=== PATIENT | female | born 1950 | race Caucasian/White ===

== ENCOUNTER → 2017-09-03 13:50 | Outpatient (CLI) | payer OTHER, SELFPAY ==
[2017-09-03 17:42] LABS: AST(SGOT) 26 U/L (15-37); Alanine Aminotransfer ALT/SGPT 38 U/L (13-56); Alkaline Phosphatase 77 U/L (45-117); Bilirubin, Direct 0.08 mg/dL (0.00-0.30); Cholesterol 169 mg/dL (200); Globulin 3.4 g/dL (2.2-4.2); High Density Lipoprotein 81 mg/dL; Protein, Total 7.4 g/dL (6.4-8.2); Triglycerides 51 mg/dL; Very Low Density Lipoprotein 10 mg/dL (5-40)
== END ==
PROVIDERS: Family Provider Family Medicine; PCP Family Medicine; Visit Provider Internal Medicine Cardiovascular Disease
DX: E78.5 Hyperlipidemia, unspecified (principal)
CPT/HCPCS: 36415; 80061; 80076

== ENCOUNTER → 2018-04-16 13:44 | Outpatient (CLI) | payer OTHER, SELFPAY ==
--- NOTE | 2018-04-16 13:47 | BI_ITS ---
MAMMOGRAPHY - BILATERAL SCREENING REASON FOR EXAM: Female, 68 years old. Routine annual screening examination. PERTINENT HISTORY: Non-contributory. TECHNIQUE: Digital bilateral breast jaz (3D mammographic acquisition) in the CC and MLO projections. 2-D mediolateral oblique (MLO) and craniocaudad (CC) views of both breasts were obtained. CAD: Full Field Digital Mammography with Computer Added Detection was performed. COMPARISON: Comparison is made with prior examination dated December 06, 2015 and April 28 2013. FINDINGS: Breast Composition: The breasts are heterogeneously dense, which may obscure small masses. There are no dominant masses or suspicious calcifications. Stable small bilateral axillary lymph nodes. No other significant abnormalities are identified. There has been no significant change since the prior study. BI/SCREENING MAMM (CAD), BILAT IMPRESSION: Stable bilateral screening mammogram. Yearly follow-up mammogram recommended. (A) ASSESSMENT CATEGORY: BIRADS Category 2: Benign. A letter regarding these results will be sent to the patient by the facility within 30 days. Approximately 10% of breast cancers are not detected by mammography. A normal mammogram should not delay biopsy of a clinically suspicious abnormality. [id number] Electronically Signed: Edu Marcus MD at 15:04 EST Tel [phone], Service support ,
== END ==
PROVIDERS: Family Provider Family Medicine; PCP Family Medicine; Referring Provider Family Medicine; Visit Provider Family Medicine
DX: Z12.31 Encounter for screening mammogram for malignant neoplasm of breast (principal)
CPT/HCPCS: 77063; 77067

== ENCOUNTER → 2018-09-07 12:01 | Outpatient (CLI) | payer OTHER, SELFPAY ==
[2018-09-07 07:55] VITALS: BMI 23.7
[2018-09-07 13:24] LABS: AST(SGOT) 28 U/L (15-37); Alanine Aminotransfer ALT/SGPT 39 U/L (13-56); Albumin, Serum 4.2 g/dL (3.2-5.0); Alkaline Phosphatase 83 U/L (45-117); Anion Gap 6 (5-15); BUN 21 mg/dL (7-18); BUN/Creat Ratio 16.9 RATIO (10-20); Bilirubin, Direct 0.13 mg/dL (0.00-0.30); Chloride 105 mmol/L (98-107); Cholesterol 193 mg/dL (200); Creatinine, Serum 1.24 mg/dL (0.55-1.02); EST Glomerular Filtration Rate 46 mL/min (>60); Est Glom Filt Rate - Afr Amer 55 mL/min (>60); Globulin 3.1 g/dL (2.2-4.2); Glucose 91 mg/dL (74-106); High Density Lipoprotein 83 mg/dL; Potassium 4.2 mmol/L (3.5-5.1); Protein, Total 7.3 g/dL (6.4-8.2); Sodium Level 138 mmol/L (136-145); Triglycerides 82 mg/dL; Very Low Density Lipoprotein 16 mg/dL (5-40)
== END ==
PROVIDERS: Family Provider Family Medicine; PCP Family Medicine; Visit Provider Internal Medicine Cardiovascular Disease
DX: E78.00 Pure hypercholesterolemia, unspecified (principal)
CPT/HCPCS: 36415; 80048; 80061; 80076

== ENCOUNTER 2018-12-10 17:28 | Emergency (ER) | payer MEDICARE, SELFPAY ==
[2018-09-07 07:55] VITALS: BMI 23.7
[2018-12-10 17:29] VITALS: BP 141/65; BP 150/63; PULSE 66; PULSE 69; RESP 14; TEMP 36.7; O2SAT 100; O2SAT 98; BMI 24.6
--- NOTE | 2018-12-10 17:30 | NURSING ---
NO OLD EKGS
--- NOTE | 2018-12-10 17:51 | EKG12_ITS ---
Test Reason : CP Blood Pressure : / mmHG Vent. Rate : 063 BPM Atrial Rate : 063 BPM P-R Int : 142 ms QRS Dur : 136 ms QT Int : 426 ms P-R-T Axes : 062 -34 101 degrees QTc Int : 435 ms Normal sinus rhythm Left axis deviation Left bundle branch block Abnormal ECG Confirmed by MIGUEL ANGEL OLMSTEAD, NATHANIEL ([id number]), publication editor KRZYSZTOF BAIRD ([id number]) on 12/14/2018 2:01:52 PM Referred By: Confirmed By:NELLA MICHELLE MD
--- NOTE | 2018-12-10 17:52 | ED.DCSUM_ITS ---
History of Present Illness Chief Complaint: Chest Pain Informant: Patient Onset: Today Context: Gradual Onset Current Severity: - - gone Maximum Severity: Moderate Narrative: Patient presents with chief complaint of chest pain. She is a history of Takotsubo. She states occasionally she will get pain to the right sternal area that radiates up to the right side of her neck. She typically takes nitro for this. Today she got pain in the center of her sternum that radiated up to both sides of her neck. She took 2 sprays of nitro twice and was not getting the relief she normally did so came in for evaluation. At the time of my examination she states her pain is completely resolved. She does follow with Dr. Briscoe. Her last stress echo was in September 2016 and was normal at that time. She denies dyspnea. She denies recent decline in activity tolerance. Past Medical History - Allergies and Home Meds Allergies/Adverse Reactions: Allergies pseudoephedrine [From Sudafed] Adverse Reaction (Verified 09/07/18 07:55) Rash Primary Care Physician: Preston Trotter MD [Primary Care Provider] - Doctors: Dr. Briscoe Prior records reviewed: Yes Past Medical History: - - Reviewed Lives: Spouse/ Significant Other Smoking Status: Never smoker Review of Systems General: Denies: Chills, Fever Eyes: Denies: Visual changes - bilaterally ENT: Denies: Bilateral ear pain Cardiovascular: Reports: Chest pain Respiratory: Denies: Dyspnea, Cough Gastrointestinal: Denies: Abdominal pain, Nausea, Vomiting Genitourinary: Denies: Dysuria Musculoskeletal: Denies: Myalgias, Arthralgias Skin: Denies: Rash Neurological: Denies: Headache, Weakness Endocrine: Denies: Polyuria, Polydipsia Hematologic: Denies: Easy bruising Allergy: Denies: Uticaria Physical Exam Vital Signs/Narrative: Vital Signs Temp Pulse Resp BP Pulse Ox 12/10/18 17:29 98.1 F 69 14 141/65 H 100 Inital Vital Signs reviewed: Yes General: Well nourished, Well developed Head: Normocephalic Eyes: Perrl ENT: Moist mucous membranes, No rhinorrhea Neck: Supple Cardiovascular: Regular rate, Regular rhythm Respiratory: No distress, CTA bilaterally. Negative for: Chest tenderness Abdomen: Soft, Nontender Extremities: Nontender, No edema Skin: Normal color Neurological: Alert, Oriented x3 Psychological: Normal affect Diagnostic/Tx/Re-eval Chest X-Ray - ED: 1 View, Read by ED Physician, Normal, Heart, Lungs, Mediastinum 12/10/18 17:53 Chest 1 View (Portable) [RAD] Stat Laboratory Results 12/10/18 12/10/18 12/10/18 17:50 17:50 20:47 WBC 7.2 RBC 4.69 Hgb 13.5 Hct 40.9 MCV 87.2 MCH 28.8 MCHC 33.0 RDW Std Deviation 41.1 RDW Coeff of Wendi 13.2 Plt Count 218 MPV 9.8 Immature Gran % (Auto) 0.300 Neut % (Auto) 53.2 Lymph % (Auto) 34.8 [place] % (Auto) 8.9 Eos % (Auto) 2.4 Baso % (Auto) 0.4 Absolute Neuts (auto) 3.9 Absolute Lymphs (auto) 2.51 Nucleated RBC % 0 Sodium 141 Potassium 3.6 Chloride 106 Carbon Dioxide 29.0 Anion Gap 6 BUN 22 H Creatinine 1.22 H Estim Creat Clear Calc 44.52 Est GFR (MDRD) Af Amer 56 L Est GFR (MDRD) Non-Af 47 L BUN/Creatinine Ratio 18.0 Glucose 135 H Calcium 9.2 Troponin I < 0.015 < 0.015 - EKG Initial EKG Interpretation: Sinus Rhythm - Sinus at 63 with left bundle branch block., LBBB Follow-up EKG Interpretation: Sinus Bradycardia - Sinus bradycardia at 52 bpm with left bundle branch block., LBBB - Medical Decision Making Patient has had no recurrent chest pain while in the emergency room. Enzymes are negative x2 and patient does not wish to stay in the hospital for further evaluation. She will return for any worsening symptoms or concerns. She does state that her nitro spray 4 years ago. When this was presented to her chief development officer in the past visit she was told it was okay. I will ask her to follow-up with them again and ensure this is appropriate. She also states that she has been having episodes of chest pain more frequently and I do feel she should follow-up with cardiology for repeat evaluation. She voices understanding and agreement. ED Disposition - Plan for ED Patient: Disposition: Home or Assisted Living Diagnosis: Chest pain Instructions: CHEST PAIN, Uncertain Cause Referrals: Preston Trotter MD [Primary Care Provider] - Jeyson Briscoe MD [STAFF PHYSICIAN] - 1 Week
--- NOTE | 2018-12-10 17:53 | RAD_ITS ---
STUDY: X-RAY CHEST REASON FOR EXAM: Female, 68 years old. Chest pain TECHNIQUE: AP portable COMPARISON: None. FINDINGS: The lungs are clear and expanded. There is no demonstrated pleural abnormality. Normal size heart. Normal mediastinum and karin. Normal visualized pulmonary arteries. Normal visualized aortic arch and descending thoracic aorta. Normal visualized thoracic spine. Normal visualized ribs, clavicles, and shoulders. There is no demonstrated abnormality of the visualized soft tissue structures of the upper abdomen. RAD/Chest 1 View (Portable) IMPRESSION: Normal x-ray examination of the chest. Electronically Signed: Farshad Loco MD at 18:51 EDT , Service support ,
[2018-12-10 17:58] LABS: Absolute Lymphocyte Count 2.51 X10^3/uL (0.83-4.51); Absolute Neutrophil Count 3.9 X10^3/uL (2.0-7.7); Basophil# 0.03 X10^3/uL; Basophil% 0.4 % (0-1); Eosinophil# 0.17 X10^3/uL; Eosinophils% 2.4 % (0-5); Hematocrit 40.9 % (37-47); Hemoglobin 13.5 g/dL (12.0-15.0); Lymphocyte # 2.51 X10^3/ul (4.0); Lymphocyte % 34.8 % (19-41); Mean Corpuscular Hgb 28.8 pg (27.0-32.0); Mean Corpuscular Volume 87.2 fL (81-99); Mean Platelet Vol. 9.8 fl (6.2-12.0); Monocyte# 0.64 X10^3/uL; Monocyte% 8.9 % (0-10); NRBC Flagged by Analyzer 0 % (0-5); Neutrophil # 3.85 X10^3/uL (2.7-7.7); Neutrophil % 53.2 % (47-70); Platelet Count 218 K/mm3 (150-450); RBC Distribution Width CV 13.2 % (11.6-14.6); RBC Distribution Width SD 41.1 fl (35.1-43.9); Red Blood Count 4.69 M/mm3 (4.2-5.4); White Blood Count 7.2 K/mm3 (4.4-11.0)
[2018-12-10 18:10] LABS: Anion Gap 6 (5-15); BUN 22 mg/dL (7-18); Calcium,Total 9.2 mg/dL (8.5-10.1); Chloride 106 mmol/L (98-107); Creatinine, Serum 1.22 mg/dL (0.55-1.02); EST Glomerular Filtration Rate 47 mL/min (>60); Est Glom Filt Rate - Afr Amer 56 mL/min (>60); Estimated Creatinine Clearance 44.52 ml/min; Glucose 135 mg/dL (74-106); Potassium 3.6 mmol/L (3.5-5.1); Sodium Level 141 mmol/L (136-145)
[2018-12-10] MEDS: 0.9% Normal Saline 1,000 ML 150 ML IV (18:35)
[2018-12-10] MEDS: Aspirin 81 MG TAB.CHEW 243 MG PO (18:35)
[2018-12-10 19:28] VITALS: BP 121/64; PULSE 67; RESP 16; O2SAT 95
--- NOTE | 2018-12-10 20:50 | EKG12_ITS ---
Test Reason : REPEAT CP Blood Pressure : / mmHG Vent. Rate : 052 BPM Atrial Rate : 052 BPM P-R Int : 148 ms QRS Dur : 142 ms QT Int : 512 ms P-R-T Axes : 065 -29 069 degrees QTc Int : 476 ms Sinus bradycardia Left bundle branch block Abnormal ECG Confirmed by MIGUEL ANGEL OLMSTEAD, NATHANIEL ([id number]), dictionary editor KRZYSZTOF BAIRD ([id number]) on 12/14/2018 2:02:10 PM Referred By: ABELARDO Confirmed By:NELLA MICHELLE MD
[2018-12-10 21:09] VITALS: BP 116/63; PULSE 61; RESP 17; O2SAT 96
[2018-12-10 21:32] VITALS: BP 115/68; PULSE 64; RESP 14; O2SAT 97
== END 2018-12-10 21:32 | disposition home or self-care (01) ==
PROVIDERS: Emergency Provider Emergency Medicine; Family Provider Family Medicine; PCP Family Medicine
DX: R07.9 Chest pain, unspecified (principal); I44.7 Left bundle-branch block, unspecified; Z79.82 Long term (current) use of aspirin; Z79.899 Other long term (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
CPT/HCPCS: 71045; 80048; 84484; 85025; 93005; 99284; J7030; A4216

== ENCOUNTER → 2018-12-15 13:49 | Outpatient (CLI) | payer MEDICARE, SELFPAY ==
[2018-12-10 17:29] VITALS: BMI 24.6
[2018-12-15 15:44] LABS: Absolute Lymphocyte Count 2.33 X10^3/uL (0.83-4.51); Absolute Neutrophil Count 2.7 X10^3/uL (2.0-7.7); Basophil# 0.02 X10^3/uL; Basophil% 0.3 % (0-1); Eosinophil# 0.19 X10^3/uL; Eosinophils% 3.3 % (0-5); Hematocrit 42.1 % (37-47); Hemoglobin 13.7 g/dL (12.0-15.0); Lymphocyte # 2.33 X10^3/ul (4.0); Lymphocyte % 40.1 % (19-41); Mean Corp Hgb Conc 32.5 g/dL (32-36); Mean Corpuscular Hgb 28.4 pg (27.0-32.0); Mean Corpuscular Volume 87.2 fL (81-99); Monocyte# 0.59 X10^3/uL; Monocyte% 10.2 % (0-10); NRBC Flagged by Analyzer 0 % (0-5); Neutrophil # 2.65 X10^3/uL (2.7-7.7); Neutrophil % 45.6 % (47-70); Platelet Count 233 K/mm3 (150-450); RBC Distribution Width CV 13.1 % (11.6-14.6); Red Blood Count 4.83 M/mm3 (4.2-5.4); White Blood Count 5.8 K/mm3 (4.4-11.0)
== END ==
PROVIDERS: Family Provider Family Medicine; PCP Family Medicine; Visit Provider Family Medicine
DX: R19.5 Other fecal abnormalities (principal)
CPT/HCPCS: 36415; 85025

== ENCOUNTER 2019-01-21 08:07 | Day surgery (SDC) | payer MEDICARE, SELFPAY ==
[2019-01-11 13:55] VITALS: BMI 23.6
[2019-01-21] VITALS (7 sets, daily range): BP systolic 82–130; BP diastolic 33–63; PULSE 54–67; RESP 16; TEMP 36.3–36.8; O2SAT 97–100; BMI 23.2
--- NOTE | 2019-01-21 08:48 | PCM.HP.BLA ---
Problem List (1) Guaiac positive stools Status: Acute History and Physical Date of Admission: 01/21/19 Intake Visit Reasons: Positive Hemocult Chief Complaint: Follow-up visit. Brand Protection Manager Required: No Is patient in pain?: No Allergies pseudoephedrine [From Sudafed] Adverse Reaction (Verified 01/11/19 13:47) Rash Medications aspirin 81 mg tablet,delayed release 81 mg PO QDAY 09/02/17 [History Confirmed 01/11/19] nitroglycerin 400 mcg/spray translingual 0.4 mg TRANSLINGUAL Q3-5M PRN 09/02/17 [History Confirmed 01/11/19] multivitamin tablet 1 tab PO QDAY 09/03/17 [History Confirmed 09/07/18] biotin 5,000 mcg disintegrating tablet 10,000 mcg PO DAILY 09/07/18 [History Confirmed 01/11/19] pravastatin 40 mg tablet 40 mg PO QHS tab 09/07/18 [History Confirmed 01/11/19] PFSH Medical History Nonischemic cardiomyopathy (Chronic) NSTEMI (non-ST elevated myocardial infarction) (Resolved 01/13/13) Left bundle branch block (Chronic) Takotsubo syndrome (Chronic) HLD (hyperlipidemia) (Chronic) Other chest pain (Resolved) Surgical History History of left heart catheterization (Resolved 01/13/13) Family History Mother Cancer Father Myocardial infarction Heart disease Brother Cardiomyopathy Social History (Updated 01/11/19 @ 14:13 by Vasu Greer MD) Smoking Status: Never smoker alcohol intake: never substance use type: does not use caffeine: Yes Type: coffee what type of physical activity do you participate in: none seatbelt use: always do you feel safe at home: Yes HPI HPI HPI: NIEVES LEWIS, is a 68 F who presents to the office today for surgical consultation regarding Hemoccult positive stool. The patient is referred by her primary care physician Dr. Preston Trotter and a written copy of my surgical consult recommendations will be returned to him. Patient had an insurance company delivered stool card that was positive for blood. As of December 15, 2018 white blood cell count is 5.8 with hemoglobin 13.7 and hematocrit 42.1 and platelet count of 233,000. She thinks she had a colonoscopy greater than 10 years ago. She has no personal history of colon polyps. There is no family history of colon polyps or colon cancer. Occasionally the patient will have looser stools and thinks she notices some blood. Occasionally if she has to wait for defecation she can have some blood. All of this is painless. She does see Dr. Jeyson Briscoe for the management of Takotsubo cardiomyopathy. She occasionally takes nitroglycerin. She is on a low-dose aspirin. She currently denies any abdominal pain. No unexpected weight loss. 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 She denies personal history of reflux disease. She has not had any history of peptic ulcer disease. HPI HPI HPI: NIEVES LEWIS, is a 68 F who presents to the office today for ROS General General: No weight change, appetite, fatigue, colon cancer, breast cancer or weakness HEENT HEENT: No difficulty swallowing, eye injury, eye surgery, swollen glands or hoarseness Endo Endocrine: No thyroid disease, diabetes mellitus, thyroid cancer, Hair loss, heat intolerance or cold intolerance Skin Skin: No rash or changing moles Breast Breast: No left breast lump, right breast lump, nipple discharge, breast pain, abnormal mammogram, abnormal US or breast enlargement Musc Musculoskeletal: Yes arthritis; no back problems, rheumatoid arthritis, gout or joint pain Cardio Cardiovascular: No murmur, pacemaker, heart disease, atrial fibrillation, high blood pressure, heart attack, heart stent, palpitations, shortness of breat with exertion or chest pain Psych Psychiatric: No depression, anxiety or hearing voices Resp Respiratory: No shortness of breath, No sleep apnea, No cough, No COPD, No asthma, No emphysema, No wheezing Gastro Gastrointestinal: No abdominal pain, No nausea or vomiting, No diarrhea, No constipation, Yes blood in stool, No acid reflux, No hemorrhoids, No ulcers, No gallbladder problem, No black,tarry stools Zac Hematologic: No blood thinners, No blood disorders, No bleeding, No anemia, No blood clots Neuro Neurologic: No system reviewed and no additional complaints, except as docu, No as per HPI, No abnormal walking, No abnormal hearing, No abnormal movements, No abnormal speech, No behavioral changes, No burning sensations, No confusion, No seizure-like activity, No unsteadiness, No dizziness, No localized weakness, No frequent falls, No headache(s), No lack of coordination, No loss of vision, No memory loss, No numbness, No other visual disturbances, No radiating pain, No restless legs, No sensory deficit, No fainting, No tingling, No tremor(s), No weakness, No other Exam Const General: cooperative, healthy appearing, comfortable, no acute distress Nutritional Appearance: average body habitus Orientation: alert, awake [facility] Head: normal to inspection Eyes General: appearance normal, both eyes and all related structures Chest Breast Palpation: No nipple discharge Resp Effort & Inspection: normal respiratory effort Auscultation: clear to auscultation bilaterally Cardio Rate: regular rate Rhythm: regular rhythm Heart Sounds: no murmurs GI Palpation: soft, no hepatosplenomegaly Percussion: normal to percussion Auscultation: normal bowel sounds Musc Cervical Spine: normal cervical lordosis Skin Lesions: no lesions Rashes: no rashes Neuro Cognition: normal cognition Extrem General: no calf tenderness bilaterally Psych Affect: normal affect Assessment & Plan Problems 1. Guaiac positive stools R19.5 Plan I am recommending the patient a esophagogastroduodenoscopy with possible biopsy as well as a colonoscopy with possible biopsy or polypectomy is indicated. I described the technique, benefits, risks, alternatives. She has had an opportunity to ask and have questions answered. She is comfortable with this and we will schedule proceed at her discretion. Because of her cardiomyopathy we will perform this with monitored anesthesia care. We will continue her on her medications. I very much appreciate the kind opportunity of assisting with surgical management. CC: Dr. Preston Greer M.D., F.A.C.S. Coding Level of Care Code 10278 Diagnoses Guaiac positive stools R19.5 01/11/19 1413 <Electronically signed by Vasu Greer MD> Date Vasu Greer MD Cosigner Signature: Date (if applicable) CC: Preston Trotter MD ~ I have re-examined the patient. There are no clinical changes since date of exam.
[2019-01-21] MEDS: Lactated Ringers 1,000 ML 100 ML IV (09:01)
--- NOTE | 2019-01-21 09:15 | IMM_PTH ---
PATIENT: NIEVES LEWIS LOC: [facility] U#:[id number] AGE/SX: 68/F ROOM: RE01/21/[address]: Dr. Vasu Greer MD : 1950 BED: DIS: 01/21/2019 SPEC #: [id number] RECD: 01/21/19 11:05 STATUS: TAMMIE REQ #: [id number] SONIA: 01/21/19 09:[address]: Vasu Greer DEPT: IMMUNOHISTOCHEMISTRY RECD BY: Heavenly Vázquez ENTERED: 01/21/19 11:06 SP TYPE: IMMUNO OTHR DR: Dr. Preston Trotter MD Tissues: A - Stomach, NOS Procedures: H Pylori (initial) PHYSICIAN & INSTITUTION [place] [id number] SPECIMEN INFORMATION: Tissue Source: A - Antral biopsy Clinical Info: Heme-positive stools Specimen Number: [id number] CPT code: 20814 METHODOLOGY: Deparaffinized sections of prefer/formalin-fixed tissue or PAP/DQ stained slides are incubated with monoclonal/polyclonal antibodies/oligonucleotide probes. Localization is made via biotin free immunoperoxidase method. Appropriate controls are performed and reacted as expected. Results on target cell population are indicated in the following table: RESULTS: ANTIBODY / CLONE RESULT H Pylori (polyclonal) negative These tests were developed and their performance characteristics determined by [facility]. They may not have been cleared or approved by the U.S. Food and Drug Administration. The FDA has determined that such clearance or approval is not necessary. INTERPRETATION: A. Antral biopsy: Negative for Helicobacter pylori organisms. AM:consuelo 01/24/19
--- NOTE | 2019-01-21 09:15 | EGD_PTH ---
PATIENT: NIEVES LEWIS LOC: [facility] U#:[id number] AGE/SX: 68/F ROOM: RE01/21/[address]: Dr. Vasu Greer MD : 1950 BED: DIS: 01/21/2019 SPEC #: [id number] RECD: 01/21/19 10:08 STATUS: TAMMIE AUGUST #: [id number] SONIA: 01/21/19 09:[address]: Vasu Greer DEPT: SURGICAL PATHOLOGY RECD BY: Isha Rodriguez ENTERED: 01/21/19 11:56 SP TYPE: EGD BIOPSY OT DR: Dr. Preston Trotter MD Tissues: A - Gastric mucous membrane B - Esophageal mucous membrane Procedures: Surgery Specimen Level IV HEADER OPERATION: Colonoscopy, EGD ([facility] [place]) PRE-OP DIAGNOSIS: Heme-positive stools TISSUE SUBMITTED: A. Antral biopsy for H. pylori and pathology, B. Distal esophageal biopsy MICROSCOPIC DIAGNOSIS A. Gastric antrum, biopsy: Mild chronic gastritis. See comment. B. Distal esophagus, biopsy: Fragments of benign squamous mucosa. No evidence of inflammation. AM:consuelo 01/24/19 COMMENT A. The results of immunohistochemistry for Helicobacter pylori will be reported separately ([id number]). MICROSCOPIC DESCRIPTION Slides are reviewed. GROSS DESCRIPTION A - Received in fixative is one container labeled with the patient's name and designated antral biopsy. The specimen consists of one irregular fragment of light matamoros soft tissue that measures 0.5 x 0.3 x 0.1 cm. The specimen is totally submitted in one cassette. B - Received in fixative is one container labeled with the patient's name and designated distal esophageal biopsy. The specimen consists of one irregular fragment of light matamoros soft tissue that measures 0.5 x 0.3 x <0.1 cm. The specimen is totally submitted in one cassette. / AM:consuelo 01/21/19 TC:3 CPT: 81488 x2
--- NOTE | 2019-01-21 09:55 | OP.ENDO_ITS ---
01/21/2019 Preston Trotter Re : Upper GI endoscopy procedure for Lisa Trotter This procedure was performed on Monday, January 21, 2019. My impressions and recommendations are as follows: Impressions : - Normal esophagus. Biopsied at distal esophagus. - Erythematous mucosa in the antrum. Biopsied. Possible source of hemocult positive - Normal examined duodenum. Recommendations : - Discharge patient to home. - Resume previous diet. - Continue present medications. - Telephone my office for pathology results in 1 week. No active bleeding or acute findings My findings are described in the full procedure note, which is enclosed. If I can be of further assistance, please feel free to contact me at Doctor phone number(s): Work: . Sincerely, Vasu Greer MD 01/21/2019 9:55:28 AM This report has been signed electronically.
--- NOTE | 2019-01-21 09:58 | OP.ENDO_ITS ---
01/21/2019 Preston Trotter Re : Colonoscopy procedure for Lisa Trotter This procedure was performed on Monday, January 21, 2019. My impressions and recommendations are as follows: Impressions : - Hemorrhoids found on perianal exam. Possible source of hemocult positive stool - Diverticulosis in the sigmoid colon. - The examination was otherwise normal. - No specimens collected. No findings of acute blood loss Recommendations : - Discharge patient to home. - Resume previous diet. - Continue present medications. - Repeat colonoscopy in 10 years for screening purposes. My findings are described in the full procedure note, which is enclosed. If I can be of further assistance, please feel free to contact me at Doctor phone number(s): Work: . Sincerely, Vasu Greer MD 01/21/2019 9:58:05 AM This report has been signed electronically.
== END 2019-01-21 10:55 | disposition home or self-care (01) ==
LOC: EN 08:08 → AC 08:09
PROVIDERS: Family Provider Family Medicine; PCP Family Medicine; Referring Provider Family Medicine; Visit Provider Surgery
PROC: 0DJD8ZZ Inspection of Lower Intestinal Tract, Via Natural or Artificial Opening Endoscopic (ICD-10-PCS; CPT 45378; principal; 2019-01-21 09:10)
DX: K29.50 Unspecified chronic gastritis without bleeding (principal); K57.30 Diverticulosis of large intestine without perforation or abscess without bleeding; K64.9 Unspecified hemorrhoids; R19.5 Other fecal abnormalities; I51.81 Takotsubo syndrome; I44.7 Left bundle-branch block, unspecified; I25.2 Old myocardial infarction; E78.5 Hyperlipidemia, unspecified; Z95.1 Presence of aortocoronary bypass graft; Z79.82 Long term (current) use of aspirin; Z79.899 Other long term (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
CPT/HCPCS: 43239; G0121; 88305; 88342; J7120; J2405

== ENCOUNTER → 2019-09-20 08:35 | Outpatient (CLI) | payer OTHER, SELFPAY ==
[2019-09-13 10:13] VITALS: BMI 24.3
[2019-09-20 09:43] LABS: AST(SGOT) 27 U/L (15-37); Alanine Aminotransfer ALT/SGPT 41 U/L (13-56); Alkaline Phosphatase 83 U/L (45-117); Bilirubin, Direct 0.17 mg/dL (0.00-0.30); Cholesterol 179 mg/dL (200); Globulin 3.2 g/dL (2.2-4.2); High Density Lipoprotein 76 mg/dL; Protein, Total 7.2 g/dL (6.4-8.2); Triglycerides 78 mg/dL; Very Low Density Lipoprotein 16 mg/dL (5-40)
== END ==
PROVIDERS: PCP Family Medicine; Referring Provider Internal Medicine Cardiovascular Disease; Visit Provider Internal Medicine Cardiovascular Disease
DX: E78.00 Pure hypercholesterolemia, unspecified (principal); I42.8 Other cardiomyopathies; I51.81 Takotsubo syndrome; I21.4 Non-ST elevation (NSTEMI) myocardial infarction; I44.7 Left bundle-branch block, unspecified; E78.5 Hyperlipidemia, unspecified
CPT/HCPCS: 36415; 80061; 80076

== ENCOUNTER → 2019-09-26 13:48 | Outpatient (CLI) | payer MEDICARE, SELFPAY ==
[2019-09-13 10:13] VITALS: BMI 24.3
--- NOTE | 2019-09-26 13:51 | ECHOD_ITS ---
Version 3 Reason For Study: CHEST PAIN Procedure This was a 2D Doppler, Color Flow transthoracic echocardiogram. Exam performed in department. Left Ventricle Normal LV size. Left ventricular systolic function is normal. The estimated ejection fraction is 55 %. Septal motion consistent with IVCD. Stage 1 diastolic dysfunction. No regional wall motion abnormalities noted. Right Ventricle Normal RV size. Normal systolic function. Atria Normal left atrium. Normal right atrium. Mitral Valve Normal mitral valve. Tricuspid Valve Normal tricuspid valve. Mild (1+) tricuspid valve insufficiency. Pulmonary artery systolic pressure is 40 mmHg. Aortic Valve Normal aortic valve. Trisinus/trileaflet aortic valve. Mild (1+) eccentric aortic valve insufficiency. Pulmonic Valve Normal pulmonic valve. Great Vessels Normal aortic root. The pulmonary artery is normal size. Normal inferior vena cava. Pericardium/Pleural No pericardial effusion. MMode/2D Measurements & Calculations LVIDd: 4.5 cm IVSd: 0.85 cm Ao root diam: 3.0 cm LVIDs: 2.9 cm LVPWd: 0.87 cm RVDd: 2.6 cm FS: 35.9 % LAV(MOD-bp): 49.8 ml LA A4 area: 18.4 cm2 LA dimension(2D): 3.6 cm LAV(MOD-bp) Indexed: 26.8 ml/m2 LAV(MOD-sp2): 44.4 ml LAV(MOD-sp4): 50.3 ml RA A4 area: 11.9 cm2 Time Measurements MV dec time: 0.17 sec Doppler Measurements & Calculations MV E max jean paul: 86.1 cm/sec Lat Peak E' Jean Paul: 7.3 cm/sec Med Peak E' Jean Paul: 5.4 cm/sec MV A max jean paul: 117.1 cm/sec E/E' lat: 11.8 E/E' med: 16.1 MV E/A: 0.74 Ao V2 max: 138.0 cm/sec AI max jean paul: 378.1 cm/sec LV V1 max: 90.9 cm/sec Ao max P.6 mmHg AI max P.3 mmHg LV V1 max P.3 mmHg AI dec slope: 163.2 cm/sec2 AI P1/2t: 678.4 msec PA V2 max: 135.6 cm/sec TR max jean paul: 301.0 cm/sec TR max P.2 mmHg Interpretation Summary Normal LV size. Left ventricular systolic function is normal. The estimated ejection fraction is 55 %. Septal motion consistent with IVCD. Pulmonary artery systolic pressure is 40 mmHg. Mild (1+) eccentric aortic valve insufficiency. Stage 1 diastolic dysfunction. Compared to previous study, the left ventricular systolic function has improved.. Ordering Physician: Jeyson Briscoe Referring Physician: KWAKU ABDULLAHI Performed By: Kierra Hussein RDCS, RVT
== END ==
PROVIDERS: PCP Family Medicine; Referring Provider Internal Medicine Cardiovascular Disease; Visit Provider Internal Medicine Cardiovascular Disease
DX: I51.81 Takotsubo syndrome (principal); R07.9 Chest pain, unspecified
CPT/HCPCS: 93306

== ENCOUNTER 2020-07-05 12:48 | Outpatient (RCR) | payer MEDICARE, SELFPAY ==
[2019-09-13 10:13] VITALS: BMI 24.3
[2020-07-05] MEDS: COVID-19 VACC, MRNA(PFIZER)/PF 30 MCG/0.3 ML SYRINGE IM (11:21)
[2020-07-26] MEDS: COVID-19 VACC, MRNA(PFIZER)/PF 30 MCG/0.3 ML SYRINGE IM (11:05)
== END 2020-10-02 23:59 ==
LOC: IMMUN 12:48
PROVIDERS: PCP Family Medicine; Referring Provider Family Medicine; Visit Provider Family Medicine
DX: Z23 Encounter for immunization (principal)
CPT/HCPCS: 0001A; 0002A; 91300

== ENCOUNTER → 2020-07-20 09:49 | Outpatient (CLI) | payer MEDICARE, SELFPAY ==
[2019-09-13 10:13] VITALS: BMI 24.3
[2020-07-20 11:11] LABS: ALB/GLOB Ratio 1.2 RATIO (0.9-2.4); AST(SGOT) 27 U/L (15-37); Alanine Aminotransfer ALT/SGPT 44 U/L (13-56); Alkaline Phosphatase 81 U/L (45-117); Anion Gap 7 (5-15); BUN 21 mg/dL (7-18); BUN/Creat Ratio 17.8 RATIO (10-20); Bilirubin, Direct 0.15 mg/dL (0.00-0.30); Calcium,Total 9.4 mg/dL (8.5-10.1); Chloride 104 mmol/L (98-107); Cholesterol 199 mg/dL (200); Creatinine, Serum 1.18 mg/dL (0.55-1.02); EST Glomerular Filtration Rate 48 mL/min (>60); Est Glom Filt Rate - Afr Amer 58 mL/min (>60); Globulin 3.3 g/dL (2.2-4.2); Glucose 102 mg/dL (74-106); High Density Lipoprotein 82 mg/dL; Protein, Total 7.3 g/dL (6.4-8.2); Sodium Level 138 mmol/L (136-145); Thyroid Stim Hormone (TSH) 3.89 uIU/mL (0.358-3.74); Triglycerides 119 mg/dL; Very Low Density Lipoprotein 24 mg/dL (5-40)
[2020-07-20 12:15] LABS: Vitamin B12 441 pg/mL (211-911)
== END ==
PROVIDERS: Internal Medicine Cardiovascular Disease; PCP Family Medicine; Referring Provider Family Medicine; Visit Provider Family Medicine
DX: E78.5 Hyperlipidemia, unspecified (principal); G62.9 Polyneuropathy, unspecified; Z79.899 Other long term (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
CPT/HCPCS: 80053; 80061; 82248; 82607; 83036; 84443

== ENCOUNTER → 2020-08-27 09:58 | Outpatient (CLI) | payer MEDICARE, SELFPAY ==
[2019-09-13 10:13] VITALS: BMI 24.3
--- NOTE | 2020-08-27 10:02 | BI_ITS ---
MAMMOGRAPHY - BILATERAL SCREENING REASON FOR EXAM: Female, 70 years old. Routine annual screening examination. PERTINENT HISTORY: Non-contributory. TECHNIQUE: Digital bilateral breast stephani (3D mammographic acquisition) in the CC and MLO projections. 2-D mediolateral oblique (MLO) and craniocaudad (CC) views of both breasts were obtained. CAD: Full Field Digital Mammography with Computer Added Detection was performed. COMPARISON: Comparison is made with prior study dated 04/16/2018 and 12/06/2015. FINDINGS: Breast Composition: The breasts are heterogeneously dense, which may obscure small masses. There are no dominant masses or suspicious calcifications. No other significant abnormalities are identified. There has been no significant change since the prior study. BI/SCRN MAMM (CAD)W/STEPHANI BILAT IMPRESSION: Stable bilateral screening mammogram. Yearly follow-up mammogram recommended. (A) ASSESSMENT CATEGORY: BIRADS Category 1: Negative. A letter regarding these results will be sent to the patient by the facility within 30 days. Approximately 10% of breast cancers are not detected by mammography. A normal mammogram should not delay biopsy of a clinically suspicious abnormality. [id number] Electronically Signed: Edu Marcus MD at 12:04 EDT , Service support ,
== END ==
PROVIDERS: PCP Family Medicine; Referring Provider Family Medicine; Visit Provider Family Medicine
DX: Z12.31 Encounter for screening mammogram for malignant neoplasm of breast (principal)
CPT/HCPCS: 77063; 77067

== ENCOUNTER → 2020-10-05 09:18 | Outpatient (CLI) | payer MEDICARE, SELFPAY ==
[2020-09-13 11:36] VITALS: BMI 23.1
--- NOTE | 2020-10-05 09:22 | STEWCON_ITS ---
Reason For Study: CHEST PAIN Stress Results Protocol: Mateo Protocol WITH DEFINITY Maximum Predicted HR: 150 bpm Target HR: 128 bpm % Maximum Predicted HR: 99 % DurationHeart Rate Stage (mm:ss) (bpm) BP Comment BASELINE 58 128/624CC DEFINITY FOR ENTIRE TEST STAGE 1 3:00 93 138/62 STAGE 2 3:00 125 170/58NO CHEST PAIN, NO SOB STAGE 3 3:00 148 172/60SLIGHT SOB, NO CHEST PAIN RECOVERY 78 136/70 Stress Duration: 9:00 mm:ss Maximum Stress HR: 148 bpm Baseline Echocardiogram Findings Stress Echo Wall motion Data Resting WM Intermediate WM Stress WM ECHO/Stress Test Echo W/Contrast Interpretation Summary Exercise stress echo. 70-year-old lady with a history of Takotsubo cardiomyopathy. Stress protocol: Resting EKG demonstrates normal sinus rhythm with a rate of 54 bpm and a left b undle branch block. The patient exercised according to regular Mateo protocol for a total duration of 9 minutes. The maximum heart rate attained was 150 bpm which was 100% of maximum predicted hea rt rate the maximum workload was 10.1 metabolic equivalents. At rest there were no ST or T wave nabil nges noted to suggest ischemia at peak exercise upsloping ST changes were noted. No evidence of ische justino was noted left bundle branch block changes were noted. The peak blood pressure was 172/60 mmHg . The test was terminated due to shortness of breath. Good blood pressure response to exercise was noted. Stress echo. The resting echocardiogram demonstrated left ventricular systolic dysfunction w ith an estimated ejection fraction of 35 to 40%. Definity enhancement was used at rest. At peak exercise there was thickening of the lateral pino with paradoxical septal motion noted in the sep jun. The anterior wall appeared to remain hypokinetic. Ischemia cannot be completely excluded. Th e peak ejection fraction was 40 to 45%. Conclusion: Exercise stress echo with a left bundle branch block morphology and reduced eje ction fraction with inadequate augmentation with exercise. Distal anterior ischemia cannot be compl etely excluded. Ordering Physician: Jeyson Briscoe Referring Physician: Jeyson Briscoe Performed By: Daiana Vela, NIGHAT, RVT
== END ==
PROVIDERS: PCP Family Medicine; Referring Provider Internal Medicine Cardiovascular Disease; Visit Provider Internal Medicine Cardiovascular Disease
DX: I51.81 Takotsubo syndrome (principal); R07.9 Chest pain, unspecified
CPT/HCPCS: 93017; 93350; Q9957; A4216; C8928; J3490

== ENCOUNTER → 2020-10-10 11:16 | Outpatient (CLI) | payer MEDICARE, SELFPAY ==
[2020-09-13 11:36] VITALS: BMI 23.1
--- NOTE | 2020-10-10 11:28 | RAD_ITS ---
STUDY: X-RAY CHEST REASON FOR EXAM: Female, 70 years old. chest pain TECHNIQUE: Frontal and lateral views of the chest. COMPARISON: 12/10/2018. FINDINGS: The lungs are clear and expanded. There is no demonstrated pleural abnormality. Normal size heart. Normal mediastinum and karin. Normal visualized pulmonary arteries. Normal visualized aortic arch and descending thoracic aorta. Normal visualized thoracic spine. Normal visualized ribs, clavicles, and shoulders. There is no demonstrated abnormality of the visualized soft tissue structures of the upper abdomen. RAD/Chest PA and Lateral IMPRESSION: Normal x-ray examination of the chest. Electronically Signed: Juan Diego De MD at 17:00 EDT , Service support ,
== END ==
PROVIDERS: PCP Family Medicine; Referring Provider Internal Medicine Cardiovascular Disease; Visit Provider Internal Medicine Cardiovascular Disease
DX: R94.39 Abnormal result of other cardiovascular function study (principal); R07.9 Chest pain, unspecified; I42.8 Other cardiomyopathies; I25.2 Old myocardial infarction; I51.81 Takotsubo syndrome; I44.7 Left bundle-branch block, unspecified; E78.00 Pure hypercholesterolemia, unspecified
CPT/HCPCS: 71046

== ENCOUNTER 2020-10-15 07:57 | Day surgery (SDC) | payer MEDICARE, SELFPAY ==
[2020-09-13 11:36] VITALS: BMI 23.1
[2020-10-11 10:27] LABS: Absolute Lymphocyte Count 2.65 X10^3/uL (0.83-4.51); Absolute Neutrophil Count 2.5 X10^3/uL (2.0-7.7); Basophil# 0.03 X10^3/uL; Basophil% 0.5 % (0-1); Eosinophil# 0.28 X10^3/uL; Eosinophils% 4.7 % (0-5); Hematocrit 42.8 % (37-47); Hemoglobin 13.8 g/dL (12.0-15.0); Lymphocyte # 2.65 X10^3/ul (0.83-4.51); Lymphocyte % 44.1 % (19-41); Mean Corp Hgb Conc 32.2 g/dL (32-36); Mean Corpuscular Hgb 27.9 pg (27.0-32.0); Mean Corpuscular Volume 86.6 fL (81-99); Mean Platelet Vol. 9.7 fl (6.2-12.0); Monocyte# 0.48 X10^3/uL; NRBC Flagged by Analyzer 0 % (0-5); Neutrophil # 2.54 X10^3/uL (2.7-7.7); Neutrophil % 42.2 % (47-70); Platelet Count 222 K/mm3 (150-450); RBC Distribution Width CV 13.2 % (11.6-14.6); RBC Distribution Width SD 41.1 fl (35.1-43.9); Red Blood Count 4.94 M/mm3 (4.2-5.4)
[2020-10-11 11:15] LABS: Anion Gap 6 (5-15); BUN 19 mg/dL (7-18); BUN/Creat Ratio 16.4 RATIO (10-20); Calcium,Total 9.4 mg/dL (8.5-10.1); Chloride 104 mmol/L (98-107); Creatinine, Serum 1.16 mg/dL (0.55-1.02); EST Glomerular Filtration Rate 49 mL/min (>60); Est Glom Filt Rate - Afr Amer 59 mL/min (>60); Glucose 94 mg/dL (74-106); Potassium 4.2 mmol/L (3.5-5.1); Sodium Level 139 mmol/L (136-145)
[2020-10-12 08:19] VITALS: BMI 23.1
--- NOTE | 2020-10-18 12:31 | CL.D_ITS ---
Patient Name: NIEVES LEWIS Study Date: 10/15/2020 Performing: Jeyson Briscoe MD Ht: 68.11 inches 173 cm : 1950 Wt: 152.12 lbs 69 kg Age: 70 Gender: female BSA: 1.82 PROCEDURE(S) PERFORMED NS70-HZM/COR/LV CLINICAL PROFILE AND INDICATIONS Indications: Suspected CAD Heart Failure: None Stress/Imaging Date: 10/05/20 Echocardiogram: Positive Intermediate Risk CAD Presentations: Symptom unlikely to be ischemic. CONCLUSIONS Mild coronary artery disease nonobstructive with preserved ejection fraction and a left bundle branch block. RECOMMENDATIONS Medical therapy DESCRIPTION OF PROCEDURE The patient arrived to the procedure lab. The risks and benefits of the procedure as well as a full d escription of our services here and current unavailability of surgical backup were fully explained to the patient and/or their significant other prior to the catheterization. The Timeout was completed, verifying the correct patient and procedure. The patient's procedural site was prepped and draped in the usual fashion. Local anesthetic was given subcutaneously to right radial region with Lidocaine 2% . Using a modified Seldinger technique, arterial access was obtained via the right radial artery, a 6 Fr sheath was inserted. Left Coronary Artery selective angiography was performed in multiple views u sing a 5 Fr. 4.0 [place]o catheter. Right Coronary Artery selective angiography was then performed in mu ltiple views using a 5 Fr. 4.0 [place]o catheter. Left Ventriculography was performed in TAVAREZ projection using a 5 Fr. Pigtail catheter. LV to AO pullback pressures were then recorded.The arterial sheath was pulled and a TR Band was applied for hemostasis CORONARY ANGIOGRAPHY DOMINANCE: Right Dominant LEFT HEART ASSESSMENT Left Ventricular Ejection Fraction: by LV Gram 60 % Normal LV wall motion Normal Left Ventricular systolic function LEFT MAIN: Angiographically normal LEFT ANTERIOR DESCENDING ARTERY: PROX LAD: Mild luminal irregularities less than 30% MID LAD: Mild luminal irregularities less than 30% CIRCUMFLEX ARTERY: No significant disease noted RIGHT CORONARY ARTERY: Mild luminal irregularities less than 30% COMPLICATIONS No Complications PROCEDURE MEDICATIONS Fentanyl 50 mcg IV Versed 1 mg IV Oxygen: 2 L/min via nasal cannula Heparin given IA 10/15/2020 11:01:42 Verapamil 2.5mg, Ntg 100mcgs, 3000 units of Heparin given IA 10/15/2020 11:01:42 SUMMARY OF HEMODYNAMIC DATA Time AIR REST ECG 08:21:18 AO 130/54 (84) SA 11:06:20 LV 137/2, 10 11:12:22 LV 140/2, 6 11:12:28 LV 118/4, 7 11:13:05 LVp 123/5, 7 11:13:08 AOp 123/-21 (38) 11:13:13 11:24:34 Signed By Jeyson Briscoe MD On 10/15/2020 11:25:12 Jeyson Briscoe MD
== END 2020-10-15 13:20 | disposition home or self-care (01) ==
LOC: CLSP 07:59
PROVIDERS: PCP Family Medicine; Referring Provider Internal Medicine Cardiovascular Disease; Visit Provider Internal Medicine Cardiovascular Disease
DX: I25.10 Atherosclerotic heart disease of native coronary artery without angina pectoris (principal); I44.7 Left bundle-branch block, unspecified; I51.81 Takotsubo syndrome; E78.5 Hyperlipidemia, unspecified; I25.2 Old myocardial infarction; Z79.899 Other long term (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; Z79.82 Long term (current) use of aspirin; Z87.19 Personal history of other diseases of the digestive system
CPT/HCPCS: 36415; 80048; 85025; 93458; 99152; 99153; J7040; Q9967; C1769; C1894

== ENCOUNTER → 2021-09-12 | Outpatient (CLI) | payer MEDICARE, SELFPAY ==
[2021-09-12 12:31] LABS: AST(SGOT) 30 U/L (15-37); Alanine Aminotransfer ALT/SGPT 41 U/L (13-56); Albumin, Serum 4.1 g/dL (3.2-5.0); Alkaline Phosphatase 73 U/L (45-117); Bilirubin, Direct 0.13 mg/dL (0.00-0.30); Cholesterol 179 mg/dL (200); Globulin 3.2 g/dL (2.2-4.2); High Density Lipoprotein 77 mg/dL; Protein, Total 7.3 g/dL (6.4-8.2); Triglycerides 105 mg/dL; Very Low Density Lipoprotein 21 mg/dL (5-40)
== END | disposition home or self-care (01) ==
LOC: LAB 11:32
PROVIDERS: PCP Family Medicine; Visit Provider Internal Medicine Cardiovascular Disease
DX: E78.00 Pure hypercholesterolemia, unspecified (principal); E78.5 Hyperlipidemia, unspecified
CPT/HCPCS: 36415; 80061; 80076

== ENCOUNTER → 2021-10-02 | Outpatient (CLI) | payer MEDICARE, SELFPAY ==
--- NOTE | 2021-10-02 12:57 | BI_ITS ---
MAMMOGRAPHY - BILATERAL SCREENING REASON FOR EXAM: Female, 71 years old. Routine annual screening examination. PERTINENT HISTORY: Non-contributory. TECHNIQUE: Digital bilateral breast stephani (3D mammographic acquisition) in the CC and MLO projections. 2-D mediolateral oblique (MLO) and craniocaudad (CC) views of both breasts were obtained. CAD: Full Field Digital Mammography with Computer Added Detection was performed. COMPARISON: Comparison is made with prior study dated 08/27/2020 and 04/16/2018. FINDINGS: Breast Composition: The breasts are heterogeneously dense, which may obscure small masses. There are no dominant masses or suspicious calcifications. No other significant abnormalities are identified. There has been no significant change since the prior study. BI/SCRN MAMM (CAD)W/STEPHANI BILAT IMPRESSION: Stable bilateral screening mammogram. Yearly follow-up mammogram recommended. (A) ASSESSMENT CATEGORY: BIRADS Category 1: Negative. A letter regarding these results will be sent to the patient by the facility within 30 days. Approximately 10% of breast cancers are not detected by mammography. A normal mammogram should not delay biopsy of a clinically suspicious abnormality. [id number] Electronically Signed: Edu Marcus MD at 13:43 EDT ,
== END | disposition home or self-care (01) ==
LOC: OPBI 12:55
PROVIDERS: PCP Family Medicine; Referring Provider Family Medicine; Visit Provider Family Medicine
DX: Z12.31 Encounter for screening mammogram for malignant neoplasm of breast (principal)
CPT/HCPCS: 77063; 77067

== ENCOUNTER → 2022-03-13 | Outpatient (CLI) | payer MEDICARE, SELFPAY ==
[2022-03-13 12:18] LABS: AST(SGOT) 32 U/L (15-37); Alanine Aminotransfer ALT/SGPT 43 U/L (13-56); Albumin, Serum 4.2 g/dL (3.2-5.0); Alkaline Phosphatase 75 U/L (45-117); Bilirubin, Direct 0.16 mg/dL (0.00-0.30); Cholesterol 195 mg/dL (200); Globulin 3.3 g/dL (2.2-4.2); High Density Lipoprotein 81 mg/dL; Protein, Total 7.5 g/dL (6.4-8.2); Triglycerides 143 mg/dL; Very Low Density Lipoprotein 29 mg/dL (5-40)
== END | disposition home or self-care (01) ==
PROVIDERS: PCP Family Medicine; Referring Provider Internal Medicine Cardiovascular Disease; Visit Provider Internal Medicine Cardiovascular Disease
DX: E78.00 Pure hypercholesterolemia, unspecified (principal)
CPT/HCPCS: 36415; 80061; 80076

== ENCOUNTER → 2022-06-13 | Outpatient (CLI) | payer MEDICARE, SELFPAY ==
[2022-06-22 10:04] LABS: HPV APTIMA, High Risk Negative (Negative)
== END | disposition home or self-care (01) ==
LOC: LABSPEC 14:32
PROVIDERS: PCP Family Medicine; Referring Provider Obstetrics & Gynecology; Visit Provider Obstetrics & Gynecology
DX: Z12.4 Encounter for screening for malignant neoplasm of cervix (principal)
CPT/HCPCS: 87624; 88175; G0145

== ENCOUNTER → 2022-09-17 | Outpatient (CLI) | payer MEDICARE, SELFPAY ==
[2022-09-17 17:50] LABS: Absolute Lymphocyte Count 2.16 X10^3/uL (0.83-4.51); Absolute Neutrophil Count 3.3 X10^3/uL (2.0-7.7); Basophil# 0.03 X10^3/uL; Basophil% 0.5 % (0-1); Eosinophil# 0.17 X10^3/uL; Eosinophils% 2.8 % (0-5); Hematocrit 40.2 % (37-47); Hemoglobin 12.9 g/dL (12.0-15.0); Lymphocyte # 2.16 X10^3/ul (0.83-4.51); Lymphocyte % 35.1 % (19-41); Mean Corp Hgb Conc 32.1 g/dL (32-36); Mean Corpuscular Hgb 28.6 pg (27.0-32.0); Mean Corpuscular Volume 89.1 fL (81-99); Mean Platelet Vol. 9.9 fl (6.2-12.0); Monocyte# 0.52 X10^3/uL; Monocyte% 8.5 % (0-10); NRBC Flagged by Analyzer 0 % (0-5); Neutrophil # 3.25 X10^3/uL (2.7-7.7); Neutrophil % 52.8 % (47-70); Platelet Count 239 K/mm3 (150-450); RBC Distribution Width CV 13.4 % (11.6-14.6); RBC Distribution Width SD 43.9 fl (35.1-43.9); Red Blood Count 4.51 M/mm3 (4.2-5.4); White Blood Count 6.2 K/mm3 (4.4-11.0)
[2022-09-17 18:04] LABS: Vitamin B12 1398 pg/mL (211-911)
[2022-09-17 18:07] LABS: Anion Gap 8 (5-15); BUN 24 mg/dL (7-18); BUN/Creat Ratio 20.3 RATIO (10-20); Calcium,Total 9.5 mg/dL (8.5-10.1); Chloride 105 mmol/L (98-107); Creatinine, Serum 1.18 mg/dL (0.55-1.02); EST Glomerular Filtration Rate 48 mL/min (>60); Est Glom Filt Rate - Afr Amer 58 mL/min (>60); Glucose 94 mg/dL (74-106); Potassium 4.6 mmol/L (3.5-5.1); Sodium Level 140 mmol/L (136-145)
== END | disposition home or self-care (01) ==
LOC: BFHLAB 13:47
PROVIDERS: PCP Nurse Practitioner Family; Referring Provider Nurse Practitioner Family; Visit Provider Nurse Practitioner Family
DX: N28.9 Disorder of kidney and ureter, unspecified (principal); E53.9 Vitamin B deficiency, unspecified
CPT/HCPCS: 36415; 80048; 82607; 85025

== ENCOUNTER → 2022-10-03 | Outpatient (CLI) | payer MEDICARE, SELFPAY ==
--- NOTE | 2022-10-03 13:09 | BI_ITS ---
MAMMOGRAPHY - BILATERAL SCREENING REASON FOR EXAM: Female, 72 years old. Routine annual screening examination. PERTINENT HISTORY: Non-contributory. TECHNIQUE: Digital bilateral breast stephani (3D mammographic acquisition) in the CC and MLO projections. 2-D mediolateral oblique (MLO) and craniocaudad (CC) views of both breasts were obtained. CAD: Full Field Digital Mammography with Computer Added Detection was performed. COMPARISON: Comparison is made with prior study dated October 02, 2021 and August 27, 2020. FINDINGS: Breast Composition: The breasts are heterogeneously dense, which may obscure small masses. There are no dominant masses or suspicious calcifications. Stable benign appearing bilateral axillary nodes. No other significant abnormalities are identified. There has been no significant change since the prior study. BI/SCRN MAMM (CAD)W/STEPHANI BILAT IMPRESSION: Stable bilateral screening mammogram. Yearly follow-up mammogram recommended. (A) ASSESSMENT CATEGORY: BIRADS Category 2: Benign. A letter regarding these results will be sent to the patient by the facility within 30 days. Approximately 10% of breast cancers are not detected by mammography. A normal mammogram should not delay biopsy of a clinically suspicious abnormality. [id number] Electronically Signed: Edu Marcus MD at 14:39 EDT ,
== END | disposition home or self-care (01) ==
LOC: OPBI 13:07
PROVIDERS: PCP Nurse Practitioner Family; Visit Provider Nurse Practitioner Family
DX: Z12.31 Encounter for screening mammogram for malignant neoplasm of breast (principal)
CPT/HCPCS: 77063; 77067

== ENCOUNTER → 2023-10-05 | Outpatient (CLI) | payer MEDICARE, SELFPAY ==
[2023-10-05 13:01] LABS: Absolute Lymphocyte Count 2.02 X10^3/uL (0.83-4.51); Absolute Neutrophil Count 2.1 X10^3/uL (2.0-7.7); Basophil# 0.03 X10^3/uL; Basophil% 0.6 % (0-1); Eosinophil# 0.15 X10^3/uL; Eosinophils% 3.2 % (0-5); Hematocrit 40.7 % (37-47); Hemoglobin 13.3 g/dL (12.0-15.0); Lymphocyte # 2.02 X10^3/ul (0.83-4.51); Lymphocyte % 43.3 % (19-41); Mean Corp Hgb Conc 32.7 g/dL (32-36); Mean Corpuscular Hgb 28.4 pg (27.0-32.0); Mean Corpuscular Volume 86.8 fL (81-99); Monocyte# 0.36 X10^3/uL; Monocyte% 7.7 % (0-10); NRBC Flagged by Analyzer 0 % (0-5); Platelet Count 231 K/mm3 (150-450); RBC Distribution Width CV 13.6 % (11.6-14.6); RBC Distribution Width SD 42.7 fl (35.1-43.9); Red Blood Count 4.69 M/mm3 (4.2-5.4); White Blood Count 4.7 K/mm3 (4.4-11.0)
[2023-10-05 13:29] LABS: Vitamin B12 1775 pg/mL (211-911)
[2023-10-05 13:48] LABS: ALB/GLOB Ratio 1.2 RATIO (0.9-2.4); AST(SGOT) 34 U/L (15-37); Alanine Aminotransfer ALT/SGPT 37 U/L (13-56); Albumin, Serum 3.8 g/dL (3.2-5.0); Alkaline Phosphatase 95 U/L (45-117); Anion Gap 4 (5-15); BUN 21 mg/dL (7-18); BUN/Creat Ratio 16.9 RATIO (10-20); Calcium,Total 9.7 mg/dL (8.5-10.1); Chloride 106 mmol/L (98-107); Cholesterol 197 mg/dL (200); Creatinine, Serum 1.24 mg/dL (0.55-1.02); EST Glomerular Filtration Rate 45 mL/min (>60); Est Glom Filt Rate - Afr Amer 54 mL/min (>60); Globulin 3.2 g/dL (2.2-4.2); Glucose 90 mg/dL (74-106); High Density Lipoprotein 67 mg/dL; Potassium 4.1 mmol/L (3.5-5.1); Sodium Level 137 mmol/L (136-145); Triglycerides 118 mg/dL; Very Low Density Lipoprotein 24 mg/dL (5-40)
[2023-10-05 14:03] LABS: Hemoglobin A1c 5.8 % (3.8-5.6)
== END | disposition home or self-care (01) ==
PROVIDERS: PCP Nurse Practitioner Family; Referring Provider Nurse Practitioner Family; Visit Provider Nurse Practitioner Family
DX: E78.5 Hyperlipidemia, unspecified (principal); R73.01 Impaired fasting glucose; I10 Essential (primary) hypertension
CPT/HCPCS: 36415; 80053; 80061; 82607; 83036; 85025

== ENCOUNTER → 2023-10-06 | Outpatient (CLI) | payer MEDICARE, SELFPAY ==
--- NOTE | 2023-10-06 08:30 | BI_ITS ---
MAMMOGRAPHY - BILATERAL SCREENING REASON FOR EXAM: Female, 73 years old. Routine annual screening examination. PERTINENT HISTORY: Non-contributory. TECHNIQUE: Digital bilateral breast stephani (3D mammographic acquisition) in the CC and MLO projections. 2-D mediolateral oblique (MLO) and craniocaudad (CC) views of both breasts were obtained. CAD: Full Field Digital Mammography with Computer Added Detection was performed. COMPARISON: Comparison is made with prior study dated October 03, 2022 and October 02, 2021. FINDINGS: Breast Composition: The breasts are heterogeneously dense, which may obscure small masses. There are no dominant masses or suspicious calcifications. Stable small benign-appearing bilateral axillary lymph nodes. No other significant abnormalities are identified. There has been no significant change since the prior study. BI/SCRN MAMM (CAD)W/STEPHANI BILAT IMPRESSION: Stable bilateral screening mammogram. Yearly follow-up mammogram recommended. (A) ASSESSMENT CATEGORY: BIRADS Category 2: Benign. A letter regarding these results will be sent to the patient by the facility within 30 days. Approximately 10% of breast cancers are not detected by mammography. A normal mammogram should not delay biopsy of a clinically suspicious abnormality. [id number] Electronically Signed: Edu Marcus MD at 9:41 EDT ,
== END | disposition home or self-care (01) ==
LOC: OPBI 08:29
PROVIDERS: PCP Nurse Practitioner Family; Referring Provider Nurse Practitioner Family; Visit Provider Nurse Practitioner Family
DX: Z12.31 Encounter for screening mammogram for malignant neoplasm of breast (principal)
CPT/HCPCS: 77063; 77067

== ENCOUNTER → 2024-10-05 | Outpatient (CLI) | payer MEDICARE, SELFPAY ==
[2024-10-05 11:49] LABS: AST(SGOT) 35 U/L (<=31); Alanine Aminotransfer ALT/SGPT 32 U/L (<=34); Albumin, Serum 4.5 g/dL (3.4-4.8); Alkaline Phosphatase 93 U/L (35-104); Bilirubin, Direct 0.23 mg/dL (0.00-0.30); Cholesterol 191 mg/dL (<=200); Globulin 2.6 g/dL (2.2-4.2); High Density Lipoprotein 69 mg/dL; Low Density Lipoprotein Calc. 101 mg/dL; Total Bilirubin 0.47 mg/dL (0.00-1.30); Triglycerides 106 mg/dL; Very Low Density Lipoprotein 21 mg/dL (5-40); cholesterol:hdl ratio screen 2.77
--- OUTSIDE RECORDS SUMMARY | 2024-10-05 19:30 | XMS RPT_ITS | CCD ---
Author Organization [facility] Care Team Providers Care Infusion Nurse Name Role Phone Violeta COCHRAN, Lacey De Dios Unavailable Unavailable Elsi Anderson Unavailable Unavailable MD Briscoe Cyril S Unavailable Violeta COCHRAN, Laecy De Dios Unavailable Unavailable Dr. Preston Trotter Primary Care Provider Dr. Preston Trotter Referring Provider Dr. Jeyson Briscoe Attending Provider Dr. Preston Trotter Primary Care Provider Dr. Preston Trotter Referring Provider CLARY Puentes Attending Provider Dr. Cecilia Leal Attending Provider Dr. Preston Trotter Primary Care Provider Dr. Preston Trotter Referring Provider Dr. Cecilia Leal Attending Provider Adonis, Noemí Primary Care Unavailable Jeyson Briscoe Attending Unavailable Preston Trotter Referring Unavailable Adonis, Noemí Attending Unavailable Adonis, Noemí Primary Care Unavailable Adonis, Noemí Referring Unavailable Adonis, Noemí Primary Care Unavailable Adonis, Noemí Referring Unavailable Adonis, Noemí Attending Unavailable Adonis DRESSED POULTRY GRADER-C, Noemí Primary Care Provider Adonis DRESSED POULTRY GRADER-C, Noemí Referring Provider Radha Puentes Attending Provider Allergies Allergy Classification Reported Allergen(s) Allergy Type Date of Onset Reaction(s) Facility (5 sources) pseudoephedrine drug allergy 6 Very painful, severe rash [facility] Work Phone: (7 sources) Pseudoephedrine Drug Allergy 1 Rash [facility] (1 source) Pseudoephedrine Drug Allergy 4 [facility] Repository Medications Current Medications Medication Drug Class(es) Dates Sig (Normalized) Sig (Original) aspirin 81 mg delayed release oral tablet (17 sources) Nonsteroidal Anti-inflammatory Drug Start: 09-02-2017 Aspirin (Adult Low Dose Aspirin) 81 mg tablet,delayed release (DR/EC) Active 81 mg PO daily September 02, 2017 12:00am Start: 08-24-2015 take 1 tablet by gayatri th once daily ASPIRIN 81 MG TABS One tablet by mouth daily ASPIRIN [id number] Lacey Mcdaniel RN Start: 08-24-2015 take 1 tablet by gayatri th once daily ASPIRIN EC 81 MG TBEC One tablet by mouth daily ASPIRIN [id number] Radha Lee PA-C biotin 5 mg disintegrating oral tablet (7 sources) Start: 09-07-2018 take 2 tablets by mouth once daily Biotin 5,000 mcg tablet,disintegrating Active 08849 ug PO DAILY September 07, 2018 12:00am Start: 09-07-2018 take 10149 ug by mouth once da lars Biotin Active 53184 MCG PO DAILY September 07, 2018 12:00am carboxymethylcellulose sodium 5 mg/ml ophthalmic solution (1 source) Start: 10-05-2024 Carboxymethylcellulose Sodium (Refresh Tears) 0.5 % drops Active 1 NMA OPHTHALMIC daily October 05, 2024 12:00am Multivitamin preparation (6 sources) Start: 09-03-2017 take 1 tablet by mouth once daily Multivitamin Active 1 TABLET PO daily September 03, 2017 10:15am Start: 09-03-2017 take 1 tablet by gayatri th once daily Multivitamin Active 1 TABLET PO daily September 03, 2017 12:00am Start: 09-03-2017 take 1 tablet by gayatri th once daily Multivitamin Active 1 TABLET PO daily September 02, 2017 11:00pm Multivitamin tablet (1 source) Start: 09-03-2017 Multivitamin t ablet Active 1 {tbl} PO daily September 03, 2017 12:00am nitroglycerin 0.4 mg/actuat mucosal spray (20 sources) Nitrate Vasodilator Start: 09-02-2017 End: 09-12-2021 Nitroglycerin (Nitrolingual) 400 mcg/spray spray,non-aerosol Active 0.4 mg Translingual every 3 to 5 minutes as needed for pain 4.9 September 12, 2021 11:20am Start: 08-24-2015 NITROSTAT 0.4 MG SUBL 1 tablet under tongue every 5 min up to 3 X NITROGLYCERIN [id number] Lacey Mcdaniel RN Start: 08-24-2015 NITROLINGUAL 0 .4 MG/SPRAY SOLN (400mcg) per spray, take as directed NITROGLYCERIN [id number] Jeyson Briscoe MD pravastatin sodium 40 mg oral tablet (20 sources) HMG-CoA Reductase Inhibitor Start: 09-02-2017 End: 01-14-2024 Pravastatin 40 mg tablet Active 0 .ROUTE .COMPLEX 90 January 14, 2024 8:12am TAKE 1 TABLET AT BEDTIME Start: 08-24-2015 take 1 tablet by gayatri th at bedtime PRAVASTATIN SODIUM 40 MG TABS One tablet by mouth at bedtime. PRAVASTATIN SODIUM [id number] Jeyson Briscoe MD vitamin b12 1 mg oral capsule (7 sources) Vitamin B12 Start: 09-13-2020 take 1 capsule by mouth once daily Cyanocobalamin (Vitamin B-12) 1,000 mcg capsule Active 1000 ug PO DAILY September 13, 2020 12:00am Completed/Discontinued Medications Medication Drug Class(es) Dates Sig (Normalized) Sig (Original) amLODIPine 5 mg oral tablet (10 sources) Dihydropyridine Calcium Channel Lorenzo Start: 08-24-2015 End: 08-29-2015 take 1 tablet by mouth once daily AMLODIPINE BESYLATE 5 MG TABS One tablet by mouth daily AMLODIPINE BESYLATE [id number] Lacey Mcdaniel RN 12 hr ranolazine 500 mg extended release oral tablet (15 sources) Anti-anginal Start: 10-05-2024 End: 10-05-2024 take 1 tablet by mouth once daily Ranolazine 500 mg tablet extended release 12 hr Discontinued 500 mg PO daily October 05, 2024 9:27am October 05, 2024 9:29am Start: 09-12-2021 End: 10-05-2024 take 1 tablet by mouth twice daily Ranolazine 500 mg tablet extended release 12 hr Discontinued 500 mg PO TWICE A DAY 180 December 30, 2023 7:57am October 05, 2024 9:28am Problems Active Problems Problem Classification Problem Date Documented Da te Episodic/Chronic Conditions associated with dizziness or vertigo (2 sources) Lightheadedness; Translations: [Dizziness and giddiness] 10-05-2024 Episodic Conduction disorders (12 sources) Left bundle branch block; Translations: [Left bundle-branch block, unspecified] Onset: 08-24-2015 08-24-2015 Chronic Coronary atherosclerosis and other heart disease (7 sources) History of non-ST segment elevation myocardial infarction; Translations: [Old myocardial infarction] Onset: 01-14-2013 09-11-2021 Chronic Disorders of lipid metabolism (14 sources) Hyperlipidemia; Translations: [Hyperlipidemia, unspecified] Onset: 08-24-2015 08-24-2015 Chronic Nonspecific chest pain (20 sources) Chest pain; Translations: [Chest pain on exertion] Onset: 09-02-2016 09-02-2016 Episodic Other and ill-defined heart disease (13 sources) Takotsubo cardiomyopathy; Translations: [Takotsubo syndrome] Onset: 01-13-2013 08-24-2015 Chronic Other and ill-defined heart disease (3 sources) Takotsubo syndrome; Translations: [Takotsubo syndrome] Onset: 01-13-2013 Chronic Other gastrointestinal disorders (7 sources) Occult blood in stools; Translations: [Other fecal abnormalities] 09-10-2019 Episodic Other screening for suspected conditions (not mental disorders or infectious disease) (8 sources) Echocardiogram abnormal; Translations: [Abnormal result of other cardiovascular function study] Onset: 10-12-2023 09-11-2021 Episodic Franny-; endo-; and myocarditis; cardiomyopathy (except that caused by tuberculosis or sexually transmitted disease) (7 sources) Cardiomyopathy; Translations: [Other cardiomyopathies] 09-11-2021 Chronic Past or Other Problems Problem Classification Problem Date Documented Da te Episodic/Chronic Other aftercare (5 sources) 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 terminal supervisor (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; Translations: [Other terminal supervisor (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] Onset: 08-24-2015 08-24-2015 Episodic Results Test Name Value Interpretation Reference Range Facility SCRN MAMM (CAD)W/STEPHANI BILATo n 10-06-2023 SCRN MAMM (CAD)W/STEPHANI BILAT [facility] Imaging Services [address] [place], [place] [id number] SCRN MAMM (CAD)W/STEPHANI BILAT MR#: [id number] Acct: [id number] Name: NIEVES LEWIS Rep #: [id number] : 1950 F 73 From: Edu mitchell MD PCP: JESUS Jeronimo Status: [facility] Study: SCRN MAMM (CAD)W/STEPHANI BILAT Date of Exam: 09/25 05/20 Exam# [id number] Ordering Dr: Noemí Lamb [id number] MAMMOGRAPHY - BILATERAL SCREENING REASON FOR EXAM: Female, 73 years old. Routine annual screening examination. PERTINENT HISTORY: Non-contributory. TECHNIQUE: Digital bilateral breast stephani (3D mammographic acquisition) in the CC and MLO projections. 2-D mediolateral oblique (MLO) and craniocaudad (CC) views of both breasts were obtained. CAD: Full Field Digital Mammography with Computer Added Detection was performed. COMPARISON: Comparison is made with prior study dated October 03, 2022 and October 02, 2021. FINDINGS: Breast Composition: The breasts are heterogeneously dense, which may obscure small masses. There are no dominant masses or suspicious calcifications. Stable small benign-appearing bilateral axillary lymph nodes. No other significant abnormalities are identified. There has been no significant change since the prior study. BI/SCRN MAMM (CAD)W/STEPHANI BILAT IMPRESSION: Stable bilateral screening mammogram. Yearly follow-up mammogram recommended. (A) ASSESSMENT CATEGORY: BIRADS Category 2: Benign. A letter regarding these results will be sent to the patient by the facility within 30 days. Approximately 10% of breast cancers are not detected by mammography. A normal mammogram should not delay biopsy of a clinically suspicious abnormality. [id number] Electronically Signed: Edu Marcus MD at 9:41 EDT , CC: [facility] Respiratory Therapist: Signed Normal [facility] CBC W/Diff, Automatedon 09-25-2023 Absolute Lymph 2.02 X10 3/uL Normal 0.83-4.51 [facility] Comment on above: Performed By: #### L 503.0105, L500.4100, L500.4050, L100.0100, L501.9985 #### [facility] [address] [place], [address] Absolute Neut 2.1 X10 3/uL Normal 2.0-7.7 [facility] Comment on above: Performed By: #### L 503.0105, L500.4100, L500.4050, L100.0100, L501.9985 #### [facility] [address] [place], [address] Basophils/100 WBC (Bld) 0.6 % Normal 0-1 [facility] Comment on above: Performed By: #### L 503.0105, L500.4100, L500.4050, L100.0100, L501.9985 #### [facility] [address] [place], [address] Eosinophils/100 WBC (Bld) 3.2 % Normal 0-5 [facility] Comment on above: Performed By: #### L 503.0105, L500.4100, L500.4050, L100.0100, L501.9985 #### [facility] [address] [place], [address] Erythrocyte distribution width (RBC) [Ratio] 13.6 % Normal 11.6-14.6 [facility] Comment on above: Performed By: #### L 503.0105, L500.4100, L500.4050, L100.0100, L501.9985 #### [facility] [address] [place], [address] Hematocrit (Bld) [Volume fraction] 40.7 % Normal 37-47 [facility] Comment on above: Performed By: #### L 503.0105, L500.4100, L500.4050, L100.0100, L501.9985 #### [facility] [address] [place], [address] Hemoglobin (Bld) [Mass/Vol] 13.3 g/dL Normal 12.0-15.0 [facility] Comment on above: Performed By: #### L 503.0105, L500.4100, L500.4050, L100.0100, L501.9985 #### [facility] [address] [place], [address] IG% 0.200 Normal 0.0-0.9 [facility] Comment on above: Result Comment: IG% - Immature Granulocytes (promyelocytes, myelocytes and metamyelocytes) > 1% indicates that a LEFT SHIFT is Present. Performed By: #### L 503.0105, L500.4100, L500.4050, L100.0100, L501.9985 #### [facility] [address] [place], [address] Lymphocytes/100 WBC (Bld) 43.3 % High 19-41 [facility] Comment on above: Performed By: #### L 503.0105, L500.4100, L500.4050, L100.0100, L501.9985 #### [facility] [address] [place], [address] MCH (RBC) [Entitic mass] 28.4 pg Normal 27.0-32.0 [facility] Comment on above: Performed By: #### L 503.0105, L500.4100, L500.4050, L100.0100, L501.9985 #### [facility] [address] [place], [address] MCHC (RBC) [Mass/Vol] 32.7 g/dL Normal 32-36 [facility] Comment on above: Performed By: #### L 503.0105, L500.4100, L500.4050, L100.0100, L501.9985 #### [facility] [address] [place], [address] MCV (RBC) [Entitic vol] 86.8 fL Normal 81-99 [facility] Comment on above: Performed By: #### L 503.0105, L500.4100, L500.4050, L100.0100, L501.9985 #### [facility] [address] [place], [address] Monocytes/100 WBC (Bld) 7.7 % Normal 0-10 [facility] Comment on above: Performed By: #### L 503.0105, L500.4100, L500.4050, L100.0100, L501.9985 #### [facility] [address] [place], [address] Neutrophils/100 WBC (Bld) 45.0 % Low 47-70 [facility] Comment on above: Performed By: #### L 503.0105, L500.4100, L500.4050, L100.0100, L501.9985 #### [facility] [address] [place], [address] Nucleated RBC (Bld) [#/Vol] 0 10*3/uL Normal 0-5 [facility] Comment on above: Performed By: #### L 503.0105, L500.4100, L500.4050, L100.0100, L501.9985 #### [facility] [address] [place], [address] Platelet mean volume (Bld) [Entitic vol] 10.0 fL Normal 6.2-12.0 [facility] Comment on above: Performed By: #### L 503.0105, L500.4100, L500.4050, L100.0100, L501.9985 #### [facility] [address] [place], [address] Platelets (Bld) [#/Vol] 231 10*3/uL Normal 150-450 [facility] Comment on above: Performed By: #### L 503.0105, L500.4100, L500.4050, L100.0100, L501.9985 #### [facility] [address] [place], [address] RBC (Bld) [#/Vol] 4.69 10*6/uL Normal 4.2-5.4 [facility] Comment on above: Performed By: #### L 503.0105, L500.4100, L500.4050, L100.0100, L501.9985 #### [facility] [address] [place], [address] RDW SD 42.7 fl Normal 35.1-43.9 [facility] Comment on above: Performed By: #### L 503.0105, L500.4100, L500.4050, L100.0100, L501.9985 #### [facility] [address] [place], [address] WBC (Bld) [#/Vol] 4.7 10*3/uL Normal 4.4-11.0 [facility] Comment on above: Performed By: #### L 503.0105, L500.4100, L500.4050, L100.0100, L501.9985 #### [facility] [address] [place], [address] Comprehensive Metabolic Prof ilon 10-05-2023 Albumin [Mass/Vol] 3.8 g/dL Normal 3.2-5.0 [facility] Comment on above: Performed By: #### L 503.0105, L500.4100, L500.4050, L100.0100, L501.9985 #### [facility] [address] [place], [address] Albumin/Globulin [Mass ratio] 1.2 {ratio} Normal 0.9-2.4 [facility] Comment on above: Performed By: #### L 503.0105, L500.4100, L500.4050, L100.0100, L501.9985 #### [facility] [address] [place], [address] ALK P 95 U/L Normal 45-117 [facility] Comment on above: Performed By: #### L 503.0105, L500.4100, L500.4050, L100.0100, L501.9985 #### [facility] [address] [place], [address] ALT [Catalytic activity/Vol] 37 U/L Normal 13-56 [facility] Comment on above: Performed By: #### L 503.0105, L500.4100, L500.4050, L100.0100, L501.9985 #### [facility] [address] [place], [address] AST [Catalytic activity/Vol] 34 U/L Normal 15-37 [facility] Comment on above: Performed By: #### L 503.0105, L500.4100, L500.4050, L100.0100, L501.9985 #### [facility] [address] [place], [address] Bilirubin [Mass/Vol] 0.50 mg/dL Normal 0.20-1.00 [facility] Comment on above: Result Comment: For patients on eltrombopag therapy, use of [place] TBIL is not recommended. Performed By: #### L 503.0105, L500.4100, L500.4050, L100.0100, L501.9985 #### [facility] [address] [place], [address] BUN/CRE 16.9 RATIO Normal 10-20 [facility] Comment on above: Performed By: #### L 503.0105, L500.4100, L500.4050, L100.0100, L501.9985 #### [facility] [address] [place], [address] CA,Total 9.7 mg/dL Normal 8.5-10.1 [facility] Comment on above: Performed By: #### L 503.0105, L500.4100, L500.4050, L100.0100, L501.9985 #### [facility] [address] [place], [address] Chloride [Moles/Vol] 106 mmol/L Normal 98-107 [facility] Comment on above: Performed By: #### L 503.0105, L500.4100, L500.4050, L100.0100, L501.9985 #### [facility] [address] [place], [address] CO2 [Moles/Vol] 27.0 mmol/L Normal 21.0-32.0 [facility] Comment on above: Performed By: #### L 503.0105, L500.4100, L500.4050, L100.0100, L501.9985 #### [facility] [address] [place], [address] Creatinine [Mass/Vol] 1.24 mg/dL High 0.55-1.02 [facility] Comment on above: Result Comment: The validity of the calculated GFR GFRAA in patients over 70 years has not been determined. Clinical correlation is essential. Performed By: #### L 503.0105, L500.4100, L500.4050, L100.0100, L501.9985 #### [facility] [address] [place], [address] EST GFR - AA 54 mL/min Low >60 [facility] Comment on above: Result Comment: Afri can Cameroonian GFR Calc Performed By: #### L 503.0105, L500.4100, L500.4050, L100.0100, L501.9985 #### [facility] [address] [place], [address] GAP 4 Low 5-15 [facility] Comment on above: Performed By: #### L 503.0105, L500.4100, L500.4050, L100.0100, L501.9985 #### [facility] [address] [place], [address] GFR/1.73 sq M.predicted among non-blacks MDRD (S/P/Bld) [Vol rate/Area] 45 mL/min/{1.73_m2} Low >60 [facility] Comment on above: Result Comment: Non- GFR Calc Performed By: #### L 503.0105, L500.4100, L500.4050, L100.0100, L501.9985 #### [facility] [address] [place], [address] Globulin (S) [Mass/Vol] 3.2 g/dL Normal 2.2-4.2 [facility] Comment on above: Performed By: #### L 503.0105, L500.4100, L500.4050, L100.0100, L501.9985 #### [facility] [address] [place], [address] Glucose [Mass/Vol] 90 mg/dL Normal 74-106 [facility] Comment on above: Performed By: #### L 503.0105, L500.4100, L500.4050, L100.0100, L501.9985 #### [facility] [address] [place], [address] Potassium [Moles/Vol] 4.1 mmol/L Normal 3.5-5.1 [facility] Comment on above: Performed By: #### L 503.0105, L500.4100, L500.4050, L100.0100, L501.9985 #### [facility] [address] [place], [address] Sodium [Moles/Vol] 137 mmol/L Normal 136-145 [facility] Comment on above: Performed By: #### L 503.0105, L500.4100, L500.4050, L100.0100, L501.9985 #### [facility] [address] [place], [address] T PROT 7.0 g/dL Normal 6.4-8.2 [facility] Comment on above: Performed By: #### L 503.0105, L500.4100, L500.4050, L100.0100, L501.9985 #### [facility] [address] [place], [address] Urea nitrogen [Mass/Vol] 21 mg/dL High 7-18 [facility] Comment on above: Performed By: #### L 503.0105, L500.4100, L500.4050, L100.0100, L501.9985 #### [facility] [address] [place], [address] Hemoglobin A1con 10-05-2023 HbA1c (Bld) [Mass fraction] 5.8 % High 3.8-5.6 [facility] Comment on above: Result Comment: Norm al < 5.7 % Prediabetic 5.7 - 6.4 % Diabetic >or= 6.5 % Please note range changes. Performed By: #### L 503.0105, L500.4100, L500.4050, L100.0100, L501.9985 #### [facility] [address] [place], [address] Lipid Profileon 10-05-2023 Cholesterol [Mass/Vol] 197 mg/dL Normal 200 [facility] Comment on above: Result Comment: <200 mg/dL Desirable 200-240 mg/dL Borderline >240 mg/dL High Risk Performed By: #### L 503.0105, L500.4100, L500.4050, L100.0100, L501.9985 #### [facility] [address] [place], [address] Cholesterol in HDL [Mass/Vol] 67 mg/dL Normal [facility] Comment on above: Result Comment: The drugs N-Acetylcysteine and Metamizole may falsely depress this assay. Reference Range HDL <40 mg/dL Low HDL Cholesterol HDL >or= 60 mg/dL High HDL Cholesterol Performed By: #### L 503.0105, L500.4100, L500.4050, L100.0100, L501.9985 #### [facility] [address] [place], [address] Cholesterol in LDL [Mass/Vol] 106 mg/dL Normal 0-130 [facility] Comment on above: Performed By: #### L 503.0105, L500.4100, L500.4050, L100.0100, L501.9985 #### [facility] [address] [place], [address] Cholesterol in VLDL [Mass/Vol] 24 mg/dL Normal 5-40 [facility] Comment on above: Performed By: #### L 503.0105, L500.4100, L500.4050, L100.0100, L501.9985 #### [facility] [address] [place], [address] Triglyceride [Mass/Vol] 118 mg/dL Normal [facility] Comment on above: Result Comment: The drugs N-Acetylcysteine and Metamizole may falsely depress this assay. Serum Triglycerides Reference Interval Normal <150 mg/dL Borderline high 150 - 199 mg/dL High 200 - 499 mg/dL Very High > or = 500 mg/dL Performed By: #### L 503.0105, L500.4100, L500.4050, L100.0100, L501.9985 #### [facility] [address] [place], [address] Vitamin B12on 10-05-2023 Cobalamin (Vitamin B12) [Mass/Vol] 1775 pg/mL High 211-911 [facility] Comment on above: Performed By: #### L 503.0105, L500.4100, L500.4050, L100.0100, L501.9985 #### [facility] [address] [place], [address] Cardiology Visit Reporton Cardiology Visit Report [facility] [address] [place], [place] [address] OFFICE VISIT Date of Service: 05/07/23 MR#: [id number] Acct: [id number] Name: NIEVES LEWIS Rep #: [id number] : 1950 Provider: Dr. Jeyson Briscoe MD Age/Sex: 73/F Location: [facility] Status: Signed HPI [facility] History of Present Illness Details: NIEVES LEWIS, is a 73F who is a lady with a history of nonobstructive coronary artery disease, a mild cardiomyopathy and a LBBB. She underwent a cardiac catheterization in September 2020 which demonstrated no obstructive coronary disease. Her ejection fraction had actually improved and normalized. At her last OV she was needing to use her NTG spray more frequent. Ranexa was added to her medications. She tells that this this decreased the amount of times she has used her NTG. She can not tell me what would bring on her chest tightness. It usually occurs at night. She does not have any worsening SOB. She does occasionally have positional dizziness. She has not had any near syncope/syncope. She does not have any palpitations. Intake Vital Signs 03/13/22 10:57 06/13/22 09:59 05/07/23 09:33 Height 5 ft 8 in 5 ft 8 in 5 ft 8 in Weight: 152 lb 8 oz 156 lb BMI 23.1 23.7 BP 145/68 H 131/70 H Blood Pressure Location Lt brachial Position Sitting Respiration 14 Pulse 60 Pulse Source Monitor Intake Visit Reasons: 1 Y FU Transmitter Supervisor Required: No Accompanied by: Self Is patient in pain?: No Allergies pseudoephedrine [From [facility]] Adverse Reaction (Verified 05/07/23 09:34) Rash Medications aspirin 81 mg tablet,delayed release (Adult Low Dose Aspirin) 81 mg PO QDAY 09/02/17 [History Confirmed 05/07/23] multivitamin 1 tab PO QDAY 09/03/17 [History Confirmed 05/07/23] biotin 5,000 mcg disintegrating tablet 10,000 mcg PO DAILY 09/07/18 [History Confirmed 05/07/23] cyanocobalamin (vitamin B-12) 1,000 mcg capsule 1,000 mcg PO DAILY 09/13/20 [History Confirmed 05/07/23] nitroglycerin 400 mcg/spray translingual (Nitrolingual) 0.4 mg translingual Q3-5M PRN pain #4.9 grams 09/12/21 [Rx Confirmed 05/07/23] ranolazine 500 mg tablet,extended release,12 hr (Ranexa) 500 mg PO BID #180 tabs 01/05/23 [Rx Confirmed 05/07/23] pravastatin 40 mg tablet See Rx Instructions .Route .COMPLEX #90 tabs 01/19/23 [Rx Confirmed 05/07/23] Ejection fraction %: 40 to 44 [facility] History Diverticulosis Guaiac positive stools Hemorrhoids History of non-ST elevation myocardial infarction (NSTEMI) (01/14/13) HLD (hyperlipidemia) Left bundle branch block Nonischemic cardiomyopathy Takotsubo syndrome (01/13/13) Surgical History History of colonoscopy (12/2018) History of left heart catheterization (10/18/20) Family History Mother Cancer Father Myocardial infarction Heart disease Brother Cardiomyopathy Social History Smoking Status: Never smoker alcohol intake: never substance use type: does not use caffeine: Yes Type: coffee what type of physical activity do you participate in: walking frequency: 3-4 times per week seatbelt use: always do you feel safe at home: Yes additional social history: - [place] [employer] ROS Const Const: Negative for fatigue, weakness, headache(s), daytime sleepiness or difficulty sleeping Eyes Eyes: Negative for change in vision ENT ENT: Negative for headache(s), dizziness or Nosebleed/epistaxis Cardio Chest Pain: No Palpitations: No Edema: None Resp Respiratory: Negative for SOB with activity, SOB at rest, SOB orthopnea SOB lying down or Cough GI GI: Negative nausea, vomiting or heartburn Neuro Neuro: Negative for dizziness, lightheadedness, near syncope, headache(s) or weakness Endo Endo: Negative for fatigue Cardiology Exam Const Appearance: cooperative, healthy appearing, no acute distress, well developed and well groomed Nutritional Appearance: average body habitus and well nourished Orientation: alert, awake and oriented x3 Head Head: normal to inspection, normocephalic and atraumatic Ears: hearing grossly normal bilaterally and external ears normal Nose: external nose normal, nares normal, nasal mucous membranes and turbinates normal, septum normal and no nasal discharge Face and Sinus: face symmetric Mouth: oral mucosae normal, tongue normal, oropharynx normal and moist mucous membranes Teeth and gingiva: dentition normal Throat: posterior oropharynx normal, tonsils normal and uvula midline Eyes General: appearance normal, both eyes and all related structures Eyelids: eyelids normal Conjunctivae: conjunctivae normal Pupils: PERRL, normal b (more content not included)... Normal [facility] Absolute lymphocyte countOrd ered By: Noemí Lamb on 09-17-2022 Lymphocytes Auto (Unsp spec) [#/Vol] 2.16 10*3/uL 0.83-4.51 [facility] Basophil percentageOrdered B y: Noemí Lamb on 09-17-2022 Basophils/100 WBC (Bld) 0.5 % 0-1 [facility] Chloride [Moles/Vol] 105 mmol/L 98-107 [facility] Eosinophils/100 WBC (Bld) 2.8 % 0-5 [facility] Glucose [Mass/Vol] 94 mg/dL 74-106 [facility] Neutrophils (Bld) [#/Vol] 3.3 10*3/uL 2.0-7.7 [facility] Neutrophils/100 WBC (Bld) 52.8 % 47-70 [facility] Potassium [Moles/Vol] 4.6 mmol/L 3.5-5.1 [facility] Sodium [Moles/Vol] 140 mmol/L 136-145 [facility] WBC (Bld) [#/Vol] 6.2 10*3/uL 4.4-11.0 [facility] Blood erythrocytes count (nu mber/volume)Ordered By: Noemí Lamb on 09-17-2022 RBC (Bld) [#/Vol] 4.51 10*6/uL 4.2-5.4 [facility] Blood hemoglobin measurement (mass/volume)Ordered By: Noemí Lamb on 09-17-2022 Hemoglobin (Bld) [Mass/Vol] 12.9 g/dL 12.0-15.0 [facility] Blood lymphocytes/100 leukoc ytesOrdered By: Noemí Lamb on 09-17-2022 Lymphocytes/100 WBC (Bld) 35.1 % 19-41 [facility] Blood monocytes/100 leukocyt esOrdered By: Noemí Lamb on 09-17-2022 Monocytes/100 WBC (Bld) 8.5 % 0-10 [facility] Blood platelet mean volumeOr dered By: Noemí Lamb on 09-17-2022 Platelet mean volume (Bld) [Entitic vol] 9.9 fL 6.2-12.0 [facility] Determination of erythrocyte mean corpuscular volume (MCV)Ordered By: Noemí Lamb on 09-17-2022 MCV (RBC) [Entitic vol] 89.1 fL 81-99 [facility] Hematocrit Auto (Bld) [Volum e fraction]Ordered By: Noemí Lamb on 09-17-2022 Hematocrit (Bld) [Volume fraction] 40.2 % 37-47 [facility] Laboratory - Chemistry and C hemistry - challengeOrdered By: Noemísheela Lamb on 09-17-2022 CO2 [Moles/Vol] 27.0 mmol/L 21.0-32.0 [facility] Cobalamin (Vitamin B12) [Mass/Vol] 1398 pg/mL 211-911 [facility] Urea nitrogen/Creatinine [Mass ratio] 20.3 mg/mg 10-20 [facility] Laboratory - Hematology and Cell countsOrdered By: Evans Adonis on 09-17-2022 Erythrocyte distribution width (RBC) [Entitic vol] 43.9 fL 35.1-43.9 [facility] Erythrocyte distribution width (RBC) [Ratio] 13.4 % 11.6-14.6 [facility] Immature granulocytes/100 WBC (Bld) 0.300 % 0.0-0.9 [facility] Comment on above: IG% - Immature Granu locytes (promyelocytes, myelocytes and metamyelocytes) > 1% indicates that a LEFT SHIFT is Present. MCH (RBC) [Entitic mass] 28.6 pg 27.0-32.0 [facility] Nucleated RBC/100 WBC (Bld) [Ratio] 0 % 0-5 [facility] MCHC Auto (RBC) [Mass/Vol]Or dered By: Noemí Lamb on 09-17-2022 MCHC (RBC) [Mass/Vol] 32.1 g/dL 32-36 [facility] No Panel InformationOrdered By: Noemí Lamb on 09-17-2022 Estimated GFR (MDRD) Amer 58 mL/min >60 [facility] Comment on above: GFR Calc Estimated GFR (MDRD) Non-Af Amer 48 mL/min >60 [facility] Comment on above: Non- GFR Calc Platelets bldOrdered By: Baron Lamb on 09-17-2022 Platelets (Bld) [#/Vol] 239 10*3/uL 150-450 [facility] Serum or plasma calcium maribell urement (mass/volume)Ordered By: Noemí Lamb on 09-17-2022 Calcium [Mass/Vol] 9.5 mg/dL 8.5-10.1 [facility] Serum or plasma creatinine m easurement (mass/volume)Ordered By: Noemí Lamb on 09-17-2022 Creatinine [Mass/Vol] 1.18 mg/dL 0.55-1.02 [facility] Comment on above: The validity of the calculated GFR & GFRAA in patients over 70 years has not been determined. Clinical correlation is essential. Serum or plasma urea nitroge n measurement (mass/volume)Ordered By: Noemí Lamb on 09-17-2022 Urea nitrogen [Mass/Vol] 24 mg/dL 7-18 [facility] Thin prep Papanicolaou smear with manual screeningOrdered By: Noemí Lamb on 09-17-2022 Thin prep Papanicolaou smear with manual screening 8 5-15 [facility] Cervical or vagninal specime n microscopic examination by cytology stain (reported asOrdered By: Dr. Wells on 06-13-2022 Cytology report Cyto stain Doc (Cvx/Vag) Comment . [facility] Comment on above: The Pap smear is a s creening test designed to aid in thedetection of premalignant and malignant conditions of theuterine cervix. It is not a diagnostic procedure andshould not be used as the sole means of detecting cervicalcancer. Both false-positive and false-negative reports dooccur. Detection in cervical specim en of any of human papilloma virus (HPV) 16, 18, 31, 33,Ordered By: Dr. Wells on 06-13-2022 HPV 16+18+31+33+35+39+45+5 1+52+56+58+59+66+68 DNA Probe+sig amp Ql (Cvx) Negative Negative [facility] Comment on above: This nucleic acid am plification test detects fourteen high- risk HPV types (16,18,31,33,35,39,45,51,52,56,58,59,66,68)without differentiation. Laboratory - CytologyOrdered By: Dr. Wells on 06-13-2022 Aging Department Supervisor Cyto stain Nom (Cvx/Vag) [ID] Comment . [facility] Comment on above: Mateo Wiley, Technician [employer] (ASCP) Laboratory - Miscellaneous t estsOrdered By: Dr. Wells on 06-13-2022 Service comment (Unsp spec) [Interp] Comment . [facility] Comment on above: This liquid based Th inPrep(R) pap test was screened withthe use of an image guided system. Service comment (Unsp spec) [Interp] . . [facility] Liquid-based cerv Pap + CT/G C by HANSEL w reflex to high-risk HPV for ASCUSOrdered By: Dr. Wells on 06-13-2022 Cytology report Cyto stain.thin prep Doc (Cvx/Vag) Comment . [facility] Comment on above: Criteria not met, HP V Genotype not performed.Performed at: [facility] [id number] Director: Zahra Ni MD, Phone: [phone] at: =[facility] - [facility] [id number] Director: Zahra Ni MD, Phone: [phone] No Panel InformationOrdered By: Dr. Wells on 06-13-2022 Pathology report final diagnosis Narrative Comment . [facility] Comment on above: NEGATIVE FOR INTRAEP ITHELIAL LESION OR MALIGNANCY.CELLULAR CHANGES ASSOCIATED WITH ATROPHY ARE PRESENT. Basophil percentageOrdered B y: Dr. Briscoe on 03-13-2022 Bilirubin [Mass/Vol] 0.60 mg/dL 0.20-1.00 [facility] Comment on above: For patients on eltr ombopag therapy, use of [place] TBIL is not recommended. Cholesterol [Mass/Vol] 195 mg/dL <200 [facility] Comment on above: <200 mg/dL Desirable 200-240 mg/dL Borderline >240 mg/dL High Risk Protein [Mass/Vol] 7.5 g/dL 6.4-8.2 [facility] Triglyceride [Mass/Vol] 143 mg/dL <199 [facility] Comment on above: The drugs N-Acetylcy steine and Metamizole may falsely depress this assay.Serum Triglycerides Reference Interval Normal <150 mg/dL Borderline high 150 - 199 mg/dL High 200 - 499 mg/dL Very High > or = 500 mg/dL Direct bilirubinOrdered By: Dr. Briscoe on 03-13-2022 Bilirubin.direct [Mass/Vol] 0.16 mg/dL 0.00-0.30 [facility] Laboratory - Chemistry and C hemistry - challengeOrdered By: Dr. Briscoe on 03-13-2022 ALP [Catalytic activity/Vol] 75 U/L 45-117 [facility] ALT [Catalytic activity/Vol] 43 U/L 13-56 [facility] Globulin (S) [Mass/Vol] 3.3 g/dL 2.2-4.2 [facility] Serum or plasma albumin maribell urement (mass/volume)Ordered By: Dr. Briscoe on 03-13-2022 Albumin [Mass/Vol] 4.2 g/dL 3.2-5.0 [facility] Serum or plasma cholesterol in HDL measurement (mass/volume)Ordered By: Dr. Briscoe on 03-13-2022 Cholesterol in HDL [Mass/Vol] 81 mg/dL >40 [facility] Comment on above: The drugs N-Acetylcy steine and Metamizole may falsely depress this assay. Reference Range HDL <40 mg/dL Low HDL Cholesterol HDL >or= 60 mg/dL High HDL Cholesterol Serum or plasma cholesterol in VLDL measurement (mass/volume)Ordered By: Dr. Briscoe on 03-13-2022 Cholesterol in VLDL [Mass/Vol] 29 mg/dL 5-40 [facility] Serum or plasma low density lipoprotein (LDL) cholesterol measurement (mass/volume)Ordered By: Dr. Briscoe on 03-13-2022 Cholesterol in LDL [Mass/Vol] 85 mg/dL 0-130 [facility] Thin prep Papanicolaou smear with manual screeningOrdered By: Dr. Briscoe on 03-13-2022 Thin prep Papanicolaou smear with manual screening 32 U/L 15-37 [facility] Basophil percentageon 2021 Bilirubin [Mass/Vol] 0.50 mg/dL 0.20-1.00 [facility] Work Phone: [phone] Comment on above: For patients on eltr ombopag therapy, use of [place] TBIL is not recommended. Cholesterol [Mass/Vol] 179 mg/dL <200 [facility] Work Phone: [phone] Comment on above: <200 mg/dL Desirable 200-240 mg/dL Borderline >240 mg/dL High Risk Protein [Mass/Vol] 7.3 g/dL 6.4-8.2 [facility] Work Phone: [phone] Triglyceride [Mass/Vol] 105 mg/dL [facility] Work Phone: [phone] Comment on above: The drugs N-Acetylcy steine and Metamizole may falsely depress this assay.Serum Triglycerides Reference Interval Normal <150 mg/dL Borderline high 150 - 199 mg/dL High 200 - 499 mg/dL Very High > or = 500 mg/dL Direct bilirubinon Bilirubin.direct [Mass/Vol] 0.13 mg/dL 0.00-0.30 [facility] Work Phone: [phone] Laboratory - Chemistry and C hemistry - challengeon 09-12-2021 ALP [Catalytic activity/Vol] 73 U/L 45-117 [facility] Work Phone: [phone] ALT [Catalytic activity/Vol] 41 U/L 13-56 [facility] Work Phone: [phone] Globulin (S) [Mass/Vol] 3.2 g/dL 2.2-4.2 [facility] Work Phone: [phone] Serum or plasma albumin maribell urement (mass/volume)on 09-12-2021 Albumin [Mass/Vol] 4.1 g/dL 3.2-5.0 [facility] Work Phone: [phone] Serum or plasma cholesterol in HDL measurement (mass/volume)on 09-12-2021 Cholesterol in HDL [Mass/Vol] 77 mg/dL [facility] Work Phone: [phone] Comment on above: The drugs N-Acetylcy steine and Metamizole may falsely depress this assay. Reference Range HDL <40 mg/dL Low HDL Cholesterol HDL >or= 60 mg/dL High HDL Cholesterol Serum or plasma cholesterol in VLDL measurement (mass/volume)on 09-12-2021 Cholesterol in VLDL [Mass/Vol] 21 mg/dL 5-40 [facility] Work Phone: Serum or plasma low density lipoprotein (LDL) cholesterol measurement (mass/volume)on 09-12-2021 Cholesterol in LDL [Mass/Vol] 81 mg/dL 0-130 [facility] Work Phone: [phone] Thin prep Papanicolaou smear with manual screeningon 09-12-2021 Thin prep Papanicolaou smear with manual screening 30 U/L 15-37 [facility] Work Phone: Lab Report: Lipid Profileon 09-02-2016 Cholesterol 182 mg/dL Invalid Interpretation Code 200 [facility] Work Phone: [phone] HDL Cholesterol 86 mg/dL Invalid Interpretation Code [facility] Work Phone: [phone] LDL Cholesterol 82 mg/dL Invalid Interpretation Code 0-130 [facility] Work Phone: [phone] Triglyceride 68 mg/dL Invalid Interpretation Code [facility] Work Phone: [phone] very low density lipoproteins 14 mg/dL Invalid Interpretation Code 5-40 [facility] Work Phone: [phone] Lab Report: Liver Profileon 09-02-2016 Alanine aminotransferase (ALT) 38 U/L Invalid Interpretation Code 12-78 [facility] Work Phone: [phone] Albumin 4.1 g/dL Invalid Interpretation Code 3.4-5.0 [facility] Work Phone: [phone] Alkaline phosphatase (ALP) 75 U/L Invalid Interpretation Code 45-117 [facility] Work Phone: [phone] Aspartate aminotransferase (AST) 25 U/L Invalid Interpretation Code 15-37 [facility] Work Phone: [phone] Bilirubin (direct) 0.11 mg/dL Invalid Interpretation Code 0.00-0.30 [facility] Work Phone: [phone] Bilirubin (total) 0.40 mg/dL Invalid Interpretation Code 0.20-1.00 [facility] [employer] Work Phone: Globulin 3.1 g/dL Invalid Interpretation Code 2.3-3.5 [employer] Phone: [phone] Protein 7.2 g/dL Invalid Interpretation Code 6.4-8.2 [employer] Phone: [phone] Office Visiton 09-02-2016 Documentation of current medications (procedure) Done Invalid Interpretation Code [employer] Phone: [phone] Fall risk assessment Fall risk assessment Invali d Interpretation Code [employer] Phone: [phone] Clinical Lists Update: [employer]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 08-29-2016 Left ventricular Ejection fraction 47 % Invalid Interpretation Code [employer] Phone: [phone] Lab Report: Lipid Profileon 02-28-2016 Cholesterol 181 mg/dL Invalid Interpretation Code 200 [employer] Phone: [phone] HDL Cholesterol 75 mg/dL Invalid Interpretation Code [employer] Phone: [phone] LDL Cholesterol 80 mg/dL Invalid Interpretation Code 0-130 [employer] Work Phone: [phone] Triglyceride 131 mg/dL Invalid Interpretation Code [employer] Phone: [phone] very low density lipoproteins 26 mg/dL Invalid Interpretation Code 5-40 [employer] Phone: [phone] Lab Report: Liver Profileon 02-28-2016 Alanine aminotransferase (ALT) 28 U/L Invalid Interpretation Code 12-78 [employer] Phone: [phone] Albumin 3.9 g/dL Invalid Interpretation Code 3.4-5.0 [employer] Phone: [phone] Alkaline phosphatase (ALP) 81 U/L Invalid Interpretation Code 50-136 [employer] Phone: [phone] Aspartate aminotransferase (AST) 23 U/L Invalid Interpretation Code 15-37 [employer] Phone: [phone] Bilirubin (direct) 0.09 mg/dL Invalid Interpretation Code 0.00-0.30 [employer] Phone: [phone] Bilirubin (total) 0.30 mg/dL Invalid Interpretation Code 0.20-1.00 [employer] Phone: Globulin 3.4 g/dL Invalid Interpretation Code 2.3-3.5 [employer] Work Phone: [phone] Protein 7.3 g/dL Invalid Interpretation Code 6.4-8.2 [employer] Work Phone: [phone] Office Visit: [facility] 02-28-20 16 Documentation of current medications (procedure) Done Invalid Interpretation Code [employer] Work Phone: [phone] Replaced Document: Donald SIMMS Observationson 08-29-2015 BUN (urea nitrogen) Sinus Bradycardia - occasional PAC # PACs = 1.-Left bundle branch block and left axis. ABNORMAL Invalid Interpretation Code [employer] Work Phone: [phone] GE use only - for [employer] import when terms are not otherwise specified 455 ms Invalid Interpretation Code [employer] Work Phone: [phone] P wave axis, electrocardiogram 59 deg Invalid Interpretation Code [facility] Work Phone: [phone] VT interval, electrocardiogram 138 ms Invalid Interpretation Code [facility] Work Phone: [phone] Pulse (Heart Rate) 57 /min Invalid Interpretation Code [facility] Work Phone: [phone] QRS axis, electrocardiogram -43 deg Invalid Interpretation Code [facility] Work Phone: [phone] QRS duration, electrocardiogram 146 ms Invalid Interpretation Code [employer] Work Phone: [phone] QT interval, electrocardiogram new path ms Invalid Interpretation Code [employer] Work Phone: [phone] T wave axis, electrocardiogram 51 deg Invalid Interpretation Code [facility] Work Phone: [phone] Clinical Lists Update: [employer]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 08-24-2015 Tobacco use [facility] Never smoker Invalid Interpretation Code [facility] [facility] Work Phone: [phone] Vital Signs Date Time Vital Sign Value Performing Clinician Ron yang 10-05-2024 09:10-0400 Body height 172.72 cm Noemí Lamb [employer] Work Phone: [facility] 10-05-2024 09:10-0400 Body mass index (BMI) [Ratio] 23.6 kg/m2 Noemí Lamb [employer] Work Phone: [facility] 10-05-2024 09:10-0400 Body weight 70.3 kg Noemí Adonis [employer] Work Phone: [facility] 10-05-2024 09:10-0400 Diastolic blood pressure 70 mm[Hg] Noemí Adonis [employer] Work Phone: [facility] 10-05-2024 09:10-0400 Heart rate 62 /min Noemí Adonis [employer] Work Phone: [facility] 10-05-2024 09:10-0400 Respiratory rate 16 /min Noemí Adonis [employer] Work Phone: [facility] 10-05-2024 09:10-0400 Systolic blood pressure 128 mm[Hg] Noemí Adonis [employer] Work Phone: [facility] 06-13-2022 09:59-0500 Body height 172.[address] Preston Trotter Work Phone: [facility] 06-13-2022 09:59-0500 Body mass index (BMI) [Ratio] 23.1 kg/m2 Dr. Preston Trotter Work Phone: [facility] 06-13-2022 09:59-0500 Body weight 69.[address] Preston Trotter Work Phone: [facility] 06-13-2022 09:59-0500 Diastolic blood pressure 68 mm[Hg] Dr. Pretson Trotter Work Phone: [facility] 06-13-2022 09:59-0500 Systolic blood pressure 145 mm[Hg] Dr. Preston Trotter Work Phone: [facility] 03-13-2022 10:57-0500 Body height 172.[address] Preston Trotter Work Phone: [facility] Work Phone: 03-13-2022 10:57-0500 Diastolic blood pressure 68 mm[Hg] Dr. Preston Trotter Work Phone: [facility] 03-13-2022 10:57-0500 Systolic blood pressure 128 mm[Hg] Dr. Preston Trotter Work Phone: [facility] 03-13-2022 10:57-0500 Body mass index (BMI) [Ratio] 22.6 kg/m2 Dr. Preston Trotter Work Phone: [facility] 03-13-2022 10:57-0500 Body weight 67.[address] Preston Trotter Work Phone: [facility] 03-13-2022 10:57-0500 Heart rate 60 /min Dr. Preston Trotter Work Phone: [facility] 03-13-2022 10:57-0500 Respiratory rate 18 /min Dr. Preston Trotter Work Phone: [facility] 03-13-2022 10:57-0500 SaO2% (BldA) [Mass fraction] 99 % Dr. Preston Trotter Work Phone: [facility] 09-12-2021 11:07-0400 Body height 172.[address] Preston Trotter Work Phone: [facility] Work Phone: 09-12-2021 11:07-0400 Body weight 70.[address] Preston Trotter Work Phone: [facility] Work Phone: 09-12-2021 11:07-0400 Diastolic blood pressure 66 mm[Hg] Dr. Preston Trotter Work Phone: [facility] Work Phone: 09-12-2021 11:07-0400 Heart rate 62 /min Dr. Preston Trotter Work Phone: [facility] Work Phone: 09-12-2021 11:07-0400 Respiratory rate 16 /min Dr. Preston Trotter Work Phone: [facility] Work Phone: 09-12-2021 11:07-0400 SaO2% (BldA) [Mass fraction] 99 % Dr. Preston Trotter Work Phone: [facility] Work Phone: 09-12-2021 11:07-0400 Systolic blood pressure 137 mm[Hg] Dr. Preston Trotter Work Phone: [facility] Work Phone: 09-13-2020 11:36-0400 Body mass index (BMI) [Ratio] 23.1 kg/m2 Dr. Preston Trotter Work Phone: [facility] Work Phone: 09-02-2016 10:23-0400 BMI (Body Mass Index) 23.11 kg/m2 MD [facility] Work Phone: 09-02-2016 10:23-0400 BP Diastolic 60 mm[Hg] Jeyson Briscoe MD [facility] Work Phone: 09-02-2016 10:23-0400 BP Systolic 110 mm[Hg] Jeyson Briscoe MD [facility] Work Phone: 09-02-2016 10:23-0400 Height 172.72 cm Jeyson Briscoe MD [facility] Work Phone: 09-02-2016 10:23-0400 Pulse (Heart Rate) 60 /min Jeyson Briscoe MD [facility] Work Phone: 09-02-2016 10:23-0400 Respiratory Rate 20 /min Jeyson Briscoe MD [facility] Work Phone: 09-02-2016 10:23-0400 Weight 68.95 kg Jeyson Briscoe MD [facility] Work Phone: 02-28-2016 10:18-0400 BMI (Body Mass Index) 22.01 kg/m2 [facility] [employer] Work Phone: 02-28-2016 10:18-0400 BP Diastolic 60 mm[Hg] Lacey Mcdaniel RN [facility] Work Phone: 02-28-2016 10:18-0400 BP Systolic 120 mm[Hg] Lacey Mcdaniel RN [facility] Work Phone: 02-28-2016 10:18-0400 BSA (Body Surface Area) 1.78 m2 Lacey Mcdaniel RN [facility] Work Phone: 02-28-2016 10:18-0400 Pulse (Heart Rate) 60 /min Lacey Mcdaniel RN [facility] Work Phone: 02-28-2016 10:18-0400 Respiratory Rate 20 /min Lacey Mcdaniel RN [facility] Work Phone: 02-28-2016 10:18-0400 Weight 65.68 kg Lacey Mcadniel RN [facility] Work Phone: 08-29-2015 09:58-0400 Height 172.72 cm Lacey Mcdaniel RN [facility] Work Phone: Encounters Encounter Date Encounter Type Care Provider Facility Start: 10-05-2024 End: 10-05-2024 ambulatory Noeím Lamb [employer] Work Phone: [facility] Work Phone: Start: 10-05-2024 End: 10-05-2024 Patient encounter procedure Radha MEANS -[facility] Work Phone: Start: 10-06-2023 End: 10-06-[address] [facility] Facility:[facility] Start: 10-05-2023 End: 10-05-[address] [facility] Facility:[facility] Start: 05-07-2023 End: 05-07-[address] [facility] [place] [place]: 10-03-2022 End: 10-03-[address] Preston Trotter Work Phone: [facility] Work Phone: Start: 10-03-2022 End: 10-03-[address] Preston Trotter Work Phone: [facility]-Outpatient Breast Imaging Start: 09-17-2022 End: 09-17-[address] Preston Trotter Work Phone: [facility] Work Phone: Start: 09-17-2022 End: 09-17-[address] Preston Trotter Work Phone: [facility]-Laboratory, Joe [facility]mond[facility] Start: 06-13-2022 End: 06-13-[address] Preston Trotter Work Phone: [facility] Work Phone: Start: 06-13-2022 End: 06-13-[address] Preston Trotter Work Phone: [facility]-Laboratory, Specimen Start: 06-13-2022 End: 06-13-[address] Preston Trotter Work Phone: [facility] Start: 03-13-2022 End: 03-13-[address] Preston Trotter Work Phone: [facility] Work Phone: Start: 03-13-2022 End: 03-13-[address] Preston Trotter Work Phone: [facility] Start: 10-02-2021 End: 10-02-[address] Preston Trotter Work Phone: [facility]-Outpatient Breast Imaging Start: 09-12-2021 End: 09-12-[address] Preston Trotter Work Phone: [facility] Procedures Date Procedure Procedure Detail Performing Clinician Start: 10-03-2022 Screening mammography Katharine Trotter Work Phone: Start: 10-02-2021 Screening mammography Katharine georgia Trotter Work Phone: Start: 09-02-2016 End: 09-26-2016 TOOL COORDINATOR Jeyson Briscoe MD Start: 09-02-2016 End: 09-26-2016 Follow Up Appt 1 year Jeyson Briscoe MD Start: 09-02-2016 End: 09-29-2016 Stress Echocardiogram (treadmill) Jeyson Briscoe MD Start: 08-27-2016 End: 09-03-2016 *Hepatic Function Panel Amy Joe Start: 08-27-2016 End: 09-03-2016 Lipid panel [AGGREGATE] Amy Joe Start: 02-29-2016 End: 03-04-2016 *Hepatic Function Panel Amy Joe Start: 02-29-2016 End: 03-04-2016 Lipid panel [AGGREGATE] Amy Joe Start: 02-28-2016 End: 02-28-2016 IZZY Lee PA-C Work Phone: Start: 02-28-2016 End: 02-28-2016 Follow Up Appt 6 months Radha lugo PA-C Work Phone: Start: 02-28-2016 End: 02-28-2016 Follow Up Appt Other Radha yan PA-C Work Phone: Start: 08-29-2015 End: 08-30-2015 *Hepatic Function Panel Amy Joe Start: 08-29-2015 End: 10-01-2015 Echocardiography Jeyson Briscoe MD Start: 08-29-2015 End: 08-29-2015 Electrocardiogram, complete Jeyson Jordan i, MD Start: 08-29-2015 End: 02-13-2016 Follow Up Appt 6 months Amy Joe Start: 08-29-2015 End: 08-30-2015 Lipid panel [AGGREGATE] Amy Joe Start: 08-29-2015 End: 02-13-2016 MMM Jeyson Briscoe MD Plan of Treatment Date Care Activity Detail Author Start: 09-03-2017 End: 09-03-2017 Appointment Appointment [facility] Work Phone: Start: 09-03-2017 End: 09-03-2017 Appointment Appointment [facility] Work Phone: Start: 03-11-2017 End: 09-13-2016 *Hepatic Function Panel *Hepatic Function Panel [facility] Work Phone: Start: 03-11-2017 End: 09-13-2016 Lipid panel [AGGREGATE] *Lipid Profile CC PCP [facility] Work Phone: Start: 09-02-2016 End: 09-02-2016 Appointment Appointment [facility] Work Phone: Start: 09-02-2016 End: 09-26-2016 TOOL COORDINATOR TOOL COORDINATOR [facility] Work Phone: Start: 09-02-2016 End: 09-26-2016 Follow Up Appt 1 year Follow Up Appt 1 year [facility] Work Phone: Start: 09-02-2016 End: 09-02-2016 Stress Echocardiogram (treadmill) Stress Echocardiogram (treadmill) [facility] Work Phone: Start: 08-27-2016 End: 09-03-2016 *Hepatic Function Panel *Hepatic Function Panel [facility] Work Phone: Start: 08-27-2016 End: 09-03-2016 Lipid panel [AGGREGATE] *Lipid Profile CC PCP [facility] Work Phone: Start: 02-29-2016 End: 03-04-2016 *Hepatic Function Panel *Hepatic Function Panel [facility] Work Phone: Start: 02-29-2016 End: 03-04-2016 Lipid panel [AGGREGATE] *Lipid Profile CC PCP [facility] Work Phone: Start: 02-28-2016 End: 02-28-2016 TOOL COORDINATOR TOOL COORDINATOR [facility] Work Phone: Start: 02-28-2016 End: 02-28-2016 Follow Up Appt 6 months Follow Up Appt 6 months [facility] Work Phone: Start: 02-28-2016 End: 02-28-2016 Follow Up Appt Other Follow Up Appt Other [facility] Work Phone: Start: 08-29-2015 End: 08-30-2015 *Hepatic Function Panel *Hepatic Function Panel [facility] Work Phone: Start: 08-29-2015 End: 08-29-2015 Echocardiography Echocardiogram (complete) [facility] Work Phone: Start: 08-29-2015 End: 08-29-2015 Electrocardiogram, complete EKG (In office) [facility] Work Phone: Start: 08-29-2015 End: 02-13-2016 Follow Up Appt 6 months Follow Up Appt 6 months [facility] Work Phone: Start: 08-29-2015 End: 08-30-2015 Lipid panel [AGGREGATE] *Lipid Profile CC PCP [facility] Work Phone: Start: 08-29-2015 End: 02-13-2016 MMM MMM [facility] Work Phone: Hepatic function panel [facility] Lipid 1996 panel - S mireya or Plasma [facility] MG Breast - bilatera l Screening [facility] Patient Education [facility] Work Phone: US Carotid arteries [facility] Immunizations Immunization Date Immunization Notes Care Provider Ann Marie bedoya 07-26-2020 Covid (Pfizer) Dr. Preston maynard Work Phone: [facility] 07-05-2020 Covid (Pfizer) Dr. Preston maynard Work Phone: [facility] Payers Date Payer Category Payer Self-pay [id number] 2022 Unknown [id number] Medicare [id number] Unknown [id number] Unknown [id number] Unknown [id number] Social History Date Type Detail Facility Start: 09-12-2021 End: 06-13-2022 Tobacco smoking status MIIS Unknown if ever smoked [facility] Start: 12-10-2018 Spouse/ Signif icant Other [facility] Start: 1950 Sex Assigned At Female W [facility] Start: 05-07-2023 Tobacco smoking status NHIS Never smoked tobacco (finding) [facility] Clinical Note 06-13-2022 Note Date & Type Note Facility 06-13-2022 Note [facility] Pap Smear Specimen Adequacy June 13, 2022 3:42pm Comment . Satisfactory for evaluation. Endocervical component may not bedistinguished in cases of atrophy. Comment on above: Satisfactory for yonis luation. Endocervical component may not bedistinguished in cases of atrophy. Clinical Note 06-13-2022 Note Date & Type Note Facility 06-13-2022 Note [facility] Pap Smear Specimen Adequacy June 13, 2022 4:42pm Comment . Satisfactory for evaluation. Endocervical component may not bedistinguished in cases of atrophy. Comment on above: Satisfactory for yonis luation. Endocervical component may not bedistinguished in cases of atrophy. Clinical Note 06-13-2022 Note Date & Type Note Facility 06-13-2022 Note [facility] Pap Smear Specimen Adequacy June 13, 2022 4:42pm Comment . Satisfactory for evaluation. Endocervical component may not bedistinguished in cases of atrophy. Comment on above: Satisfactory for yonis luation. Endocervical component may not bedistinguished in cases of atrophy. Evaluation note 01-13-2013 Note Date & Type Note Facility 01-13-2013 Evaluation note Diagnosis Onset Date Chest pain acute Takotsubo syndrome January 13, 2013 r esolved [facility] Work Phone: Evaluation note 01-13-2013 Note Date & Type Note Facility 01-13-2013 Evaluation note Diagnosis Onset Date Chest pain acute Takotsubo syndrome January 13, 2013 r esolved Encounter for routine gynecological examination noneactive [facility] Work Phone: Evaluation note 01-13-2013 Note Date & Type Note Facility 01-13-2013 Evaluation note Diagnosis Onset Date Resolution Lightheadedness acute September 9:00am HLD (hyperlipidemia) chronic October 05, 2024 9:00am Takotsubo syndrome January 13, 2013 resolved October 05, 2024 9:00am [facility] [employer] Work Phone: Evaluation note Note Date & Type Note Facility Evaluation note No assessment information availa ble [facility] Work Phone: Evaluation note Note Date & Type Note Facility Evaluation note Diagnosis Onset Date Encounter for routine gyneco logical examination noneactive [facility] Work Phone: Reason for referral (narrative) Note Date & Type Note Facility Reason for referral (narrative) No reason for referral information available [facility] [employer] Work Phone: Chief Complaint and Reason for Visit Chief Complaint 1 Y FU E ORDER Reason for Visit Chest pain Takotsubo syndrome Chief Complaint 1 Y FU E ORDER SCREENING Reason for Visit Chest pain Takotsubo syndrome Chief Complaint INT LABS 6 M FU Chief Complaint INT LABS 6 M FU 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 Reason for Visit Chest pain Takotsubo syndrome Encounter for routine gynecological examination Chief Complaint 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 Reason for Visit Encounter for routin e gynecological examination Chief Complaint 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 SCREENING Reason for Visit Encounter for routin e gynecological examination Chief Complaint Admit Date m fu October 05, 2024 9:00 am Reason for Visit Admit Date Lightheadedness October 05, 2024 9:00 am HLD (hyperlipidemia) October 05, 2024 9:0 0am Takotsubo syndrome October 05, 2024 9:00 am Family History Relationship Condition Age at Onset Recorded Date/T meghana mother Malignant neoplasm Unknown father Myocardial infarction Unknown Cardiac disease Unknown brother Cardiomyopathy Unknown Advance Directives Advance Directive Response Recorded Date/ Time Advance Directives Yes October 15 8:25am Living Will Yes October 15, 2020 8:25am Power of Vice President Quality Improvement Yes October 15 8:25am Advance Directive Response Recorded Date/ Time Advance Directives Yes October 15 7:25am Living Will Yes October 15, 2020 7:25am Power of Vice President Quality Improvement Yes October 15 7:25am Advance Directive Response Recorded Date/ Time Living Will Yes October 15, 2020 8:25am Do you have a Healthcare Power of Vice President Quality Improvement? Yes October 15, 2020 8:25am Advance Directives Yes October 15 8:25am Summary Purpose Additional Source Comments Goals (unrecognized section and content) Goals may be documented in a n alternate sectionGoals may be documented in an alternate sectionGoals may be documented in an alternate sectionGoals may be documented in an alternate sectionGoals may be documented in an alternate sectionGoals may be documented in an alternate sectionGoals may be documented in an alternate section Care Teams (unrecognized sec tion and content) Team Status: Active Member Role Status Dates Dr. Preston Trotter MD Family Provider Active Dr. Preston Trotter MD Primary Care Provider Active Team Status: Inactive Member Role Status Dates Dr. Preston Trotter MD Primary Care Provider, Referring Provider Active Radha EMANS, PA Attending Provider Active Team Status: Inactive Member Role Status Dates Dr. Preston Trotter MD Primary Care Provider, Referring Provider Active Dr. Cecilia Leal DO Attending Provider Activ e Team Status: Inactive Member Role Status Dates Dr. Preston Trotter MD Primary Care Provider Active Dr. Jeyson Briscoe MD Attending Provider, Referring Pro vider Active Team Status: Inactive Member Role Status Dates Dr. Preston Trotter MD Primary Care Provider Active Dr. Cecilia Vande Velde , DO Attending Provider, Refe rring Provider Active Team Status: Active Member Role Status Dates Dr. Preston Trotter MD Family Provider Active Noemí Lamb , DRESSED POULTRY GRADER-C Primary Care Provider Active Team Status: Inactive Member Role Status Dates Noemí Lamb DRESSED POULTRY GRADER-C Primary Care Provide r, Attending Provider, Referring Provider Active Team Status: Inactive Member Role Status Dates Noemí Lamb , DRESSED POULTRY GRADER-C Primary Care Provider, Attending Adriel meade Active Team Status: Active Member Role Status Dates Noemí Lamb , DRESSED POULTRY GRADER-C Primary Care Provider Active Team Status: Inactive Member Role Status Dates Noemí Lamb , DRESSED POULTRY GRADER-C Primary Care Provider Active Start: October 05, 2024 End: October 05, 2024 Noemí Lamb , DRESSED POULTRY GRADER-C Referring Provider Active St art: October 05, 2024 End: October 05, 2024 Radha MEANS, PA Attending Provider Active Start: October 05, 2024 End: October 05, 2024 INFORMATION SOURCE (unrecogn ized section and content) DATE CREATED AUTHOR 10/17/2023 [facility] FOR RECORDS PERTAINING TO PATIENTS WHO ARE OR HAVE BEEN ENROLLED IN A CHEMICAL DEPENDENCY/SUBSTANCEABUSE PROGRAM, SOME INFORMATION MAY BE OMITTED. This clinical summary was aggregated from multiple sources. Caution should be exercised in using it in the provision of clinical care. This summary normalizes information from multiple sources, and as a consequence, information in this document may materially change the coding, format and clinical context of patient data. In addition, data may be omitted in some cases. CLINICAL DECISIONS SHOULD BE BASED ON THE PRIMARY CLINICAL RECORDS. [employer] provides no warranty or guarantee of the accuracy or completeness of information in this document.
== END | disposition home or self-care (01) ==
LOC: LAB 09:47
PROVIDERS: PCP Nurse Practitioner Family; Referring Provider Physician Assistant Medical; Visit Provider Physician Assistant Medical
DX: E78.00 Pure hypercholesterolemia, unspecified (principal)
CPT/HCPCS: 36415; 80061; 80076

== ENCOUNTER → 2024-10-14 | Outpatient (CLI) | payer MEDICARE, SELFPAY ==
--- NOTE | 2024-10-14 08:50 | CDU_ITS ---
Reason For Study Reason For Study: Lightheadedness Rt. Velocities/BP Lt. Velocities/BP Prox CCA 76/11 cm/sec. Prox CCA 105/14 cm/sec. Mid CCA 65/11 cm/sec. Mid CCA 89/15 cm/sec. Dist CCA 66/13 cm/sec. Dist CCA 64/11 cm/sec. Prox ICA 54/13 cm/sec. Prox ICA 59/10 cm/sec. Mid ICA 91/27 cm/sec. Mid ICA 81/22 cm/sec. Dist ICA 94/24 cm/sec. Dist ICA 92/26 cm/sec. Rt. ICA/CCA = 1.5. Lt. ICA/CCA = 1.0. Prox ECA 68/0 cm/sec. Prox ECA 70/0 cm/sec. Rt. Vert. 51/9 cm/sec. Lt. Vert. 42/8 cm/sec. Right Extracranial There is intimal thickening but no significant atherosclerotic plaque noted in the right common carotid artery. There is intimal thickening but no significant atherosclerotic plaque noted in the right internal carotid artery. There is intimal thickening but no significant atherosclerotic plaque noted in the right external carotid artery. Antegrade flow is noted in the right vertebral artery. Left Extracranial There is intimal thickening but no significant atherosclerotic plaque noted in the left common carotid artery. There is intimal thickening but no significant atherosclerotic plaque noted in the left internal carotid artery. There is intimal thickening but no significant atherosclerotic plaque noted in the left external carotid artery. Antegrade flow is noted in the left vertebral artery. Procedure Carotid Duplex [id number]. This is a Carotid Duplex examination using B-mode, color flow and specral Doppler. Exam performed in department. VL/Carotid Duplex Ultrasound Interpretation Summary Normal right extracranial internal carotid. Normal left extracranial internal carotid. Patent and antegrade vertebrals bilaterally. Ordering Physician: Radha Lee Referring Physician: Noemí Lamb Performed By: Noemí Fonseca, RDCS, RVT
== END | disposition home or self-care (01) ==
LOC: CVS 08:46
PROVIDERS: PCP Nurse Practitioner Family; Referring Provider Physician Assistant Medical; Visit Provider Physician Assistant Medical
DX: R42 Dizziness and giddiness (principal)
CPT/HCPCS: 93880